=== PATIENT | male | born 1960 | race Caucasian/White ===

== ENCOUNTER 2017-09-13 09:30 | Emergency (ER) | payer SELFPAY ==
--- NOTE | 2017-09-13 09:30 | DT_ITS ---
This patient was seen during an EMR downtime September 09, 2017 - September 16, 2017. This patient may have a combination of paper and electronic documentation or all paper documentation. All documentation is viewable within the e-chart portion of [employer] for each patient visit.
--- NOTE | 2017-09-13 09:43 | CT_ITS ---
STUDY: CT ABDOMEN AND PELVIS WITHOUT CONTRAST REASON FOR EXAM: Male, 56 years old. Length RADIATION DOSAGE (If Supplied By Facility): CTDIvol = ( 19.54 ) mGy, DLP = ( 1064.47 ) mGycm TECHNIQUE: Transaxial images were obtained from the dome of the diaphragm to the symphysis pubis without oral contrast, and without intravenous contrast. Sagittal and coronal images were reconstructed. Individualized dose optimization techniques were used for this CT. COMPARISON: None. FINDINGS: The visualized lung bases are unremarkable. The visualized portions of the heart are within normal limits. Normal liver. Normal gallbladder and extrahepatic biliary system. Normal spleen. Normal pancreas. Normal bilateral adrenal glands. There is a 3 mm stone at the RIGHT ureterovesical junction causing moderate RIGHT hydronephrosis and hydroureter. There are tiny stones in both kidneys. There is NO LEFT hydronephrosis. Normal visualized stomach. Normal small intestine. Normal colon. The appendix is not identified. Normal abdominal aorta. Normal inferior vena cava. Normal retroperitoneum. Normal urinary bladder. There is NO ascites, free air, abscess or adenopathy. Normal abdominal wall. There is loss of disc height at L5-S1. There is grade 1 anterior spondylolisthesis with bilateral spondylolysis. CT/Abdomen/Pelvis without Cont IMPRESSION: There is a 3 mm stone at the RIGHT ureterovesical junction causing moderate RIGHT hydronephrosis and hydroureter. There are tiny stones in both kidneys. There is NO LEFT hydronephrosis. Normal visualized stomach. Normal small intestine. Normal colon. The appendix is not identified. There is NO ascites, free air, abscess or adenopathy. There is loss of disc height at L5-S1. There is grade 1 anterior spondylolisthesis with bilateral spondylolysis. Electronically Signed: Erasmo Salinas MD at 6:13 EDT , Service support ,
[2017-09-16 09:12] LABS: Bacteria 0 SEEN /hpf (None Seen); Mucous, Urine 0 SEEN /hpf (<or=2+); White Blood Cells 0 SEEN /hpf (0-5)
[2017-09-16 09:19] LABS: Color, Urine Yellow (Yellow); Glucose, Dipstick NEGATIVE (Normal); Ketone-Dipstick Negative (Negative); Specific Gravity, Urine 1.015 (1.002-1.030); Urine Bilirubin Dipstick Negative (Negative); Urine Clarity Sl Cldy (Clear)
[2017-09-16 09:20] LABS: Leukocyte Esterase-Dipstick Negative /ul (Negative); Nitrite-Dipstick Negative (Negative); Occult Blood-Urine 25 /ul (Negative); Protein-Dipstick 30 mg/dl (Negative); Red Blood Cells-Urine 0-5 SEEN /hpf (0-5); Squamous Epithelial Cells - UA 0-5 SEEN /hpf (0-5); Urine Urobilinogen Normal (Normal)
== END 2017-09-13 12:40 | disposition home or self-care (01) ==
LOC: ED 13:06
PROVIDERS: Emergency Provider Emergency Medicine
DX: N20.1 Calculus of ureter (principal)
CPT/HCPCS: 74176; 81001; 96374; 96375; 96376; 99283; A4216; J2405

== ENCOUNTER 2018-05-15 13:00 | Outpatient (RCR) | payer SELFPAY ==
--- NOTE | 2018-10-20 08:25 | HP.PT.NRP ---
HP - Discharge Summary (1) - Patient Information CRISTIANE JOHNS was seen in my office for initial evaluation on . The following Plan of Care was established for this patient: This patient was last seen in our office . 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 At this point I will be discontinuing this patient from physical therapy. I would be happy to see this patient again in the future if found appropriate by the physician. Thank you! Areli Kimble, SHWETAT
== END 2018-05-15 19:00 | disposition home or self-care (01) ==
LOC: PT 13:00
DX: R69 Illness, unspecified (principal)

== ENCOUNTER → 2019-05-26 11:56 | Outpatient (CLI) | payer SELFPAY ==
[2015-09-03 11:10] VITALS: BMI 29.3
--- NOTE | 2019-05-26 12:01 | RAD_ITS ---
STUDY: X-RAY - LUMBAR SPINE REASON FOR EXAM: Male, 58 years old. low back pain TECHNIQUE: 2 view(s) of the lumbar spine were obtained. COMPARISON: 13 September 2017 FINDINGS: There is bilateral L5 lysis with grade 1 anterolisthesis of L5 on S1, approximately 6 mm, stable since 2018 CT. Vertebral bodies are intact without destructive lesions, lytic or blastic lesions. Mineralization is normal. SI joints are intact. There is no intestinal obstruction. There are bilateral small renal calculi. There is severe elevation of BMI. RAD/Lumbar Spine 2 or 3 Views IMPRESSION: 1. L5 lysis, grade 1 anterolisthesis, stable since 2018. Electronically Signed: Paul Cueva, at 18:17 EST Tel , Service support ,
== END ==
PROVIDERS: Referring Provider Chiropractor Orthopedic; Visit Provider Chiropractor Orthopedic
DX: M54.5 Low back pain (principal)
CPT/HCPCS: 72100

== ENCOUNTER 2020-08-20 08:20 | Emergency (ER) | payer SELFPAY ==
[2020-08-20 08:20] VITALS: BP 146/99; PULSE 72; RESP 16; TEMP 36.1; O2SAT 97; BMI 33.5
--- NOTE | 2020-08-20 08:26 | CT_ITS ---
EXAM: CT ABDOMEN AND PELVIS WITHOUT INTRAVENOUS CONTRAST : 1960 CLINICAL INDICATION: Kidney Stone TECHNIQUE: Helically acquired images were obtained of the abdomen and pelvis without intravenous contrast. This CT exam was performed using one or more of the following dose reduction techniques: automated exposure control, adjustment of the mA and/or kV according to patient size, and/or use of iterative reconstruction technique. This report was created using [employer] report generation technology. COMPARISON: 09/13/2017 FINDINGS: LOWER THORAX: Unremarkable. Lung bases are clear. No cardiomegaly. No significant pericardial effusion. ABDOMEN: LIVER: Unremarkable. Homogeneous. GALLBLADDER AND BILE DUCTS: Unremarkable. No calcified gallstones. No gallbladder distention or wall edema. No intra- or extrahepatic biliary ductal dilation. PANCREAS: Unremarkable. No focal cystic mass. SPLEEN: Unremarkable. Normal size without focal cystic or solid mass. ADRENALS: Unremarkable. No nodules. KIDNEYS AND URETERS: There is left-sided hydronephrosis and hydroureter. There are nonobstructing calyceal stones bilaterally. Normal renal size and position. STOMACH AND BOWEL: Unremarkable. No stomach or bowel distention. No focal inflammatory change. PELVIS: APPENDIX: No evidence of acute appendicitis. BLADDER: There is a 4 mm stone within the bladder at the level of the left ureteral orifice. REPRODUCTIVE: Unremarkable as visualized. No mass. ABDOMEN and PELVIS: INTRAPERITONEAL SPACE: Unremarkable. No ascites or other fluid collection. No free air. BONES/JOINTS: Unremarkable. No suspicious lytic or blastic abnormality. SOFT TISSUES: Unremarkable. No discrete abdominal or pelvic wall hernia. VASCULATURE: Unremarkable. Abdominal aorta is non-dilated. LYMPH NODES: Unremarkable. No enlarged lymph nodes. CT/Abdomen/Pelvis without Cont IMPRESSION: Obstruction of the left collecting system due to a 4 mm stone within the bladder at the level of the left ureteral orifice. There is left-sided hydronephrosis and hydroureter. There are nonobstructing calyceal stones bilaterally. Individualized dose optimization techniques were used for this CT. at 0937 Reported and signed by: Bert Stone MD Electronically Signed: Bert Stone MD at 9:36 EDT Tel , Service support ,
--- NOTE | 2020-08-20 08:26 | EX.ED.DYSGE1 ---
HPI History of Present Illness Chief Complaint: Flank Pain Informant: patient Onset/Context/Timing Onset: Today Context: Sudden Onset Timing: Continuous Current Severity: Moderate Narrative Narrative: The patient is a 59-year-old male with no significant medical history the presents to the emergency department with left flank pain. He states it started this morning. He describes it as a sharp, stabbing pain. He is been nauseated without vomiting. He states he feels like pain is moving more towards his lower abdomen. He does have history of kidney stone, but has not had one in some time. He has no history of lithotripsy or stenting. He denies dysuria. He denies any fevers or chills. Prior similar symptoms: Yes Recent Illness/Hospitalization: No PFSH PFSH no medical history Home Medications hydrocodone-acetaminophen 1 tab PO Q6H PRN PRN 3 Days #10 tablet 08/20/20 [Rx Last Taken Unknown] ondansetron 4 mg PO Q8H PRN PRN #10 tab 08/20/20 [Rx Last Taken Unknown] tamsulosin 0.4 mg PO DAILY #7 capsule 08/20/20 [Rx Last Taken Unknown] Allergy/AdvReac Type Severity Reaction Status Date / Time No Known Allergies Allergy Verified 09/03/15 11:10 no significant family history Surgical History History of appendectomy Social History Smoking Status: Former smoker ROS ROS ED Constitutional Constitutional ED: Denies chills or fever(s) Eyes Eyes: Denies blurry vision or change in vision ENT ENT ED: Denies ear pain or sore throat Cardiovascular Cardiovascular: Denies chest pain or palpitations Respiratory/Chest Respiratory/Chest: Denies cough, dyspnea or dyspnea on exertion Gastrointestinal Gastrointestinal: Reports abdominal pain and nausea; Denies vomiting Genitourinary Genitourinary ED: Denies dysuria or urinary frequency Musculoskeletal Musculoskeletal: Reports back pain; Denies arthralgias or myalgias Integumentary Denies rash Neurologic Neurologic: Denies headache(s) or paresthesias Psychiatric Psychiatric: Denies anxiety or depression Endocrine Endocrinology: Denies polydipsia or polyuria Allergic/Immunologic Allergic/Immunologic ED: Denies urticaria EXAM Physical Exam Const Vital Signs: 08/20/20 08:20 08/20/20 10:23 Temperature 97.0 F L Temperature Source Temporal Pulse Rate 72 86 Respiratory Rate 16 16 Blood Pressure 146/99 H 142/92 H Blood Pressure Mean 114 108 Pulse Ox 97 96 Oxygen Delivery Method Room Air Room Air Positive well nourished and well developed General Appearance ED: well developed HEENT Reports normocephalic, head/scalp atraumatic and moist mucous membranes Eyes PERRL and EOMs intact bilaterally Neck no lymphadenopathy and supple General: Negative for tenderness Chest Wall inspection of chest normal Resp normal respiratory effort and clear to auscultation bilaterally Cardio regular rate, regular rhythm and no murmurs GI normal to inspection, nondistended, normoactive bowel sounds Palpation: Negative for tender, guarding or rebound tenderness present Back/Spine General Back: CVA tenderness Cervical Spine: Negative for cervical spine tenderness Thoracic Spine / Upper Back: Negative for thoracic spinal tenderness Extremity normal to inspection General Extremety ED: Negative for tenderness Neuro oriented x3 and CN's II-XII intact bilaterally Neuro Narrative: No focal deficits appreciated. Sensorium / Orientation: alert Psych mental status grossly normal Skin no rashes or lesions noted, no wounds and skin turgor normal MDM MDM MDM Narrative Medical decision making narrative: Patient presents with acute left-sided flank pain. He does have history of kidney stones. He is never required lithotripsy or stenting. IV was established. She was treated with analgesics and antiemetics and is feeling improved. CT does demonstrate a 4 mm stone right at the junction of the bladder. Patient is still resting comfortably. His labs are otherwise unremarkable. At this point, I do feel it is safe for outpatient follow-up with urology. I will prescribe analgesics and antiemetics. He was counseled on concerning symptoms and reasons to return. He will be discharged home. Impression 1. 4 mm left-sided urolithiasis Lab Data Attestation: I reviewed the patient's lab results. Labs: Laboratory Results - last 24 hr 08/20/20 08/20/20 08:45 08:45 WBC 7.4 RBC 4.94 Hgb 15.2 Hct 44.7 MCV 90.5 MCH 30.8 MCHC 34.0 RDW Std Deviation 39.7 RDW Coeff of Nidia 12.1 Plt Count 311 MPV 9.5 Immature Gran % (Auto) 0.300 Neut % (Auto) 49.8 Lymph % (Auto) 38.3 Brown % (Auto) 8.9 Eos % (Auto) 2.3 Baso % (Auto) 0.4 Absolute Neuts (auto) 3.7 Absolute Lymphs (auto) 2.84 Nucleated RBC % 0 Sodium 142 Potassium 4.7 Chloride 110 H Carbon Dioxide 30.0 Anion Gap 2 L BUN 12 Creatinine 1.12 Estim Creat Clear Calc 75.64 Est GFR (MDRD) Af Amer 86 Est GFR (MDRD) Non-Af 71 BUN/Creatinine Ratio 10.7 Glucose 123 H Calcium 9.0 Radiography Diagnostic Testing: Radiology Impression Abdomen/Pelvis CT 08/20/20 08:26 IMPRESSION: Obstruction of the left collecting system due to a 4 mm stone within the bladder at the level of the left ureteral orifice. There is left-sided hydronephrosis and hydroureter. There are nonobstructing calyceal stones bilaterally. Individualized dose optimization techniques were used for this CT. at 0937 Reported and signed by: Bert Stone MD Electronically Signed: Bert Stone MD at 9:36 EDT Tel , Service support , Discharge Plan Triage Chief Complaint: Flank Pain ED Provider: Esteban Chávez Dx/Rx/DC Orders Instructions: ED Kidney Stone w/ Colic Prescriptions: New hydrocodone-acetaminophen [hydrocodone-acetaminophen] 1 TABLET tablet 1 tab PO Q6H PRN PRN (Reason: Pain) 3 Days Qty: 10 RF: 0 tamsulosin [tamsulosin] 0.4 MG capsule 0.4 mg PO DAILY Qty: 7 RF: 0 ondansetron [ondansetron] 4 MG tablet 4 mg PO Q8H PRN PRN (Reason: Nausea) Qty: 10 RF: 0 Primary Care Provider: Care Physician,No Primary Referrals: Matt Montez MD [STAFF PHYSICIAN] - 3-5 Days Care Physician,No Primary [Primary Care Provider] -
[2020-08-20] MEDS: 0.9% Normal Saline 1,000 ML 250 ML IV (08:35)
[2020-08-20] MEDS: Ondansetron 4 MG/2 ML Vial IV (08:39)
[2020-08-20] MEDS: Ketorolac 30 MG/ML Syringe IV (08:39)
[2020-08-20] MEDS: Morphine 4 MG/ML Syringe IV ×2 (08:39→10:14)
[2020-08-20 08:57] LABS: Absolute Lymphocyte Count 2.84 X10^3/uL (0.83-4.51); Absolute Neutrophil Count 3.7 X10^3/uL (2.0-7.7); Basophil# 0.03 X10^3/uL; Basophil% 0.4 % (0-1); Eosinophil# 0.17 X10^3/uL; Eosinophils% 2.3 % (0-5); Hematocrit 44.7 % (40-54); Hemoglobin 15.2 g/dL (13.0-16.5); Lymphocyte # 2.84 X10^3/ul (0.83-4.51); Lymphocyte % 38.3 % (19-41); Mean Corpuscular Hgb 30.8 pg (27.0-32.0); Mean Corpuscular Volume 90.5 fL (80-94); Mean Platelet Vol. 9.5 fl (6.2-12.0); Monocyte# 0.66 X10^3/uL; Monocyte% 8.9 % (0-10); NRBC Flagged by Analyzer 0 % (0-5); Neutrophil % 49.8 % (47-70); Platelet Count 311 K/mm3 (150-450); RBC Distribution Width CV 12.1 % (11.6-14.6); RBC Distribution Width SD 39.7 fl (35.1-43.9); Red Blood Count 4.94 M/mm3 (4.6-6.2); White Blood Count 7.4 K/mm3 (4.4-11.0)
[2020-08-20 09:05] LABS: Anion Gap 2 (5-15); BUN 12 mg/dL (7-18); BUN/Creat Ratio 10.7 RATIO (10-20); Chloride 110 mmol/L (98-107); Creatinine, Serum 1.12 mg/dL (0.70-1.30); EST Glomerular Filtration Rate 71 mL/min (>60); Est Glom Filt Rate - Afr Amer 86 mL/min (>60); Estimated Creatinine Clearance 75.64 ml/min; Glucose 123 mg/dL (74-106); Potassium 4.7 mmol/L (3.5-5.1); Sodium Level 142 mmol/L (136-145)
[2020-08-20 10:23] VITALS: BP 142/92; PULSE 86; RESP 16; O2SAT 96
[2020-08-20 10:26] LABS: Mucous, Urine 0 SEEN /hpf (<or=2+); White Blood Cells 0 SEEN /hpf (0-5)
[2020-08-20 10:35] LABS: Color, Urine Yellow (Yellow); Glucose, Dipstick Normal (Normal); Ketone-Dipstick Negative (Negative); Leukocyte Esterase-Dipstick 25 /ul (Negative); Nitrite-Dipstick Negative (Negative); Occult Blood-Urine 150 /ul (Negative); Protein-Dipstick Negative (Negative); Urine Bilirubin Dipstick Negative (Negative); Urine Clarity Sl. Cloudy (Clear); Urine Urobilinogen Normal (Normal)
[2020-08-20 10:41] LABS: Red Blood Cells-Urine 5-10 SEEN /hpf (0-5); Squamous Epithelial Cells - UA 0-5 SEEN /hpf (0-5)
[2020-08-20 10:42] VITALS: BP 140/95; PULSE 66; RESP 17; O2SAT 97
[2020-08-20 10:42] LABS: Amorphous Sediment 1+; Bacteria 1+ /hpf (None Seen)
== END 2020-08-20 10:43 | disposition home or self-care (01) ==
LOC: ED 09:24
PROVIDERS: Emergency Provider Emergency Medicine
DX: N21.0 Calculus in bladder (principal); Z87.442 Personal history of urinary calculi; Z87.891 Personal history of nicotine dependence
CPT/HCPCS: 74176; 80048; 81001; 85025; 96361; 96374; 96375; 96376; 99283; J7030; A4216; J2405

== ENCOUNTER 2022-02-14 12:01 | Observation (INO) | payer SELFPAY ==
[2022-02-14] VITALS (7 sets, daily range): BP systolic 127–165; BP diastolic 79–106; PULSE 73–103; RESP 16–21; TEMP 36.3–36.7; O2SAT 94–97; BMI 36.4; BMI 34.5
--- NOTE | 2022-02-14 12:21 | EX.ED.DYSGE1 ---
HPI History of Present Illness Chief Complaint: Syncope Informant: patient, spouse/S.O. and family Narrative Narrative: 61-year-old male presenting to the emergency room with syncope. Patient states that he was in his normal state of health this morning. He is retired and was looking underneath the truck. He states he was on his arms and his knees and the next thing he remembers was waking up on the ground. He attempted to stand up and passed out again. He remembers being diaphoretic. He denies any prodrome. He denies any chest pain or palpitations. He denies any previous occurrence of this. Currently he just feels weak. He notes that he had sweat dripping down his back but did not experience any new pain. The patient is noted to appear pale to his . PFSH PFSH Home Medications Lactobacillus acidophilus 1 billion cell tablet 1,000 mmu cells PO DAILY GUT HEALTH 02/14/22 [History Last Taken 02/14/22] ibuprofen 125 mg-acetaminophen 250 mg tablet (Advil Dual Action) 2 tab PO DAILY PRN Pain 02/14/22 [History Last Taken Unknown] multivitamin 1 tab PO DAILY SUPPLEMENT 02/14/22 [History Last Taken 02/14/22] Allergy/AdvReac Type Severity Reaction Status Date / Time No Known Allergies Allergy Verified 09/03/15 11:10 Surgical History History of appendectomy Social History (Updated 02/14/22 @ 12:[address] Silvestre Akhtar DO) household members: spouse Smoking Status: Former smoker ROS ROS ED Constitutional Constitutional ED: Denies chills or weight loss Eyes Eyes: Denies change in vision or diplopia ENT ENT ED: Denies ear pain, rhinorrhea or sore throat Cardiovascular Cardiovascular: Reports other Details: syncope ; Denies chest pain, orthopnea, palpitations or racing heartbeat Respiratory/Chest Respiratory/Chest: Denies cough, dyspnea or orthopnea Gastrointestinal Gastrointestinal: Denies abdominal pain, diarrhea, nausea or vomiting Genitourinary Genitourinary ED: Denies dysuria, hematuria or urinary frequency Musculoskeletal Musculoskeletal: Denies arthralgias or myalgias Integumentary Denies abscess or rash Neurologic Neurologic: Denies headache(s) or weakness Psychiatric Psychiatric: Denies anxiety, depression, suicidal ideation or suicidal thoughts Endocrine Endocrinology: Denies polydipsia, polyphagia or polyuria Allergic/Immunologic Allergic/Immunologic ED: Denies mouth swelling, tongue swelling or urticaria EXAM Physical Exam Const Vital Signs: 02/14/22 12:03 02/14/22 15:06 02/14/22 15:21 Temperature 97.4 F L Temperature Source Temporal Pulse Rate 82 99 Pulse Rate [Lying] 85 Pulse Rate [Sitting (for 1 minute prior to obtaining)] 91 Pulse Rate [Standing (for 1 minute prior to obtaining)] 103 H Respiratory Rate 16 21 H Blood Pressure 146/94 H 165/106 H Blood Pressure [Lying] 147/84 H Blood Pressure [Sitting (for 1 minute prior to obtaining)] 165/106 H Blood Pressure Mean 111 125 Blood Pressure Mean [Lying] 105 Blood Pressure Mean [Sitting (for 1 minute prior to obtaining)] 125 Pulse Ox 94 97 Oxygen Delivery Method Room Air Room Air Positive well nourished and well developed General Appearance ED: well developed HEENT Reports normocephalic, head/scalp atraumatic and moist mucous membranes Eyes PERRL and EOMs intact bilaterally Neck no lymphadenopathy, supple and no JVD Resp normal respiratory effort and clear to auscultation bilaterally Cardio regular rate, regular rhythm and no murmurs GI normal to inspection, nondistended, normoactive bowel sounds and non-tender Palpation: soft Back/Spine no CVA tenderness and normal ROM Extremity normal to inspection General Extremety ED: Negative for edema General Extremity: Negative for edema Neuro oriented x3 and CN's II-XII intact bilaterally Sensorium / Orientation: alert Motor Exam: strength 5/5 throughout Psych mental status grossly normal Mood & Affect: Negative for depressed or tearful Skin no rashes or lesions noted and no wounds MDM MDM MDM Narrative Medical decision making narrative: Basic blood work was obtained showed a white count 11.7 hemoglobin 15.8. EKG shows a normal sinus rhythm. My interpretation of the chest x-ray is no acute process. CT of the brain is negative the patient attempted to ambulate to the bathroom but was extremely lightheaded. Orthostatics are not positive. I spoke with our hospitalist who is evaluated the patient. Dr. Cr found a positive Renato-Hallpike. And the patient now relays data that could be consistent with vertigo. He is still symptomatic and plan is admission Lab Data Attestation: I reviewed the patient's lab results. Labs: Laboratory Results - last 24 hr 02/14/22 02/14/22 11:43 11:43 WBC 11.7 H RBC 5.13 Hgb 15.8 Hct 46.2 MCV 90.1 MCH 30.8 MCHC 34.2 RDW Std Deviation 39.0 RDW Coeff of Nidia 11.9 Plt Count 237 MPV 10.6 Immature Gran % (Auto) 0.300 Neut % (Auto) 51.6 Lymph % (Auto) 38.3 Thayer % (Auto) 7.9 Eos % (Auto) 1.5 Baso % (Auto) 0.4 Absolute Neuts (auto) 6.0 Absolute Lymphs (auto) 4.48 Nucleated RBC % 0 Sodium 141 Potassium 4.2 Chloride 106 Carbon Dioxide 31.0 Anion Gap 4 L BUN 14 Creatinine 1.10 Estim Creat Clear Calc 75.11 Est GFR (MDRD) Af Amer 87 Est GFR (MDRD) Non-Af 72 BUN/Creatinine Ratio 12.7 Glucose 120 H Calcium 9.3 Total Bilirubin 0.40 AST 28 ALT 46 Alkaline Phosphatase 99 Troponin I High Sens 4 Total Protein 8.0 Albumin 4.0 Globulin 4.0 Albumin/Globulin Ratio 1.0 Radiography Diagnostic Testing: Clinical Impression(s) from Imaging Studies Chest X-Ray 02/14/22 12:45 IMPRESSION: Increased markings at the left lung base suggestive of atelectasis and/or early infiltrate. There is blunting of the right costophrenic angle. Electronically Signed: Leno Mosley MD at 13:05 EST , Brain CT 02/14/22 14:34 IMPRESSION: Normal unenhanced CT scan of the brain. Electronically Signed: Leno Mosley MD at 15:04 EST , EKG Initial EKG: Attestation: I personally reviewed and interpreted this EKG as follows: Comments: Sinus rhythm with a first-degree AV block at a ventricular rate of 71 bpm Discharge Plan Triage Chief Complaint: Syncope ED Provider: Silvestre Akhtar Dx/Rx/DC Orders Prescriptions: No Action multivitamin [One A Day] Tablet 1 tab PO DAILY Lactobacillus acidophilus 1 billion cell Tablet 1,000 mmu cells PO DAILY Advil Dual Action 125-250 mg Tablet 2 tab PO DAILY PRN (Reason: Pain) Primary Care Provider: Care Physician,No Primary Referrals: Care Physician,No Primary [Primary Care Provider] -
--- NOTE | 2022-02-14 12:35 | EKG12_ITS ---
Test Reason : SYNCOPE Blood Pressure : / mmHG Vent. Rate : 071 BPM Atrial Rate : 071 BPM P-R Int : 226 ms QRS Dur : 084 ms QT Int : 364 ms P-R-T Axes : 036 -10 041 degrees QTc Int : 395 ms Sinus rhythm with 1st degree A-V block Otherwise normal ECG Confirmed by UMAIR RICE, MAIRA ([id number]), sound editor DEREK PETER ([id number]) on 02/20/2022 9:28:32 A M Referred By: Confirmed By:HUMBERTO BLOCK MD
[2022-02-14 12:45] LABS: Absolute Lymphocyte Count 4.48 X10^3/uL (0.83-4.51); Basophil# 0.05 X10^3/uL; Basophil% 0.4 % (0-1); Eosinophil# 0.18 X10^3/uL; Eosinophils% 1.5 % (0-5); Hematocrit 46.2 % (40-54); Hemoglobin 15.8 g/dL (13.0-16.5); Lymphocyte # 4.48 X10^3/ul (0.83-4.51); Lymphocyte % 38.3 % (19-41); Mean Corp Hgb Conc 34.2 g/dL (32-36); Mean Corpuscular Hgb 30.8 pg (27.0-32.0); Mean Corpuscular Volume 90.1 fL (80-94); Mean Platelet Vol. 10.6 fl (6.2-12.0); Monocyte# 0.92 X10^3/uL; Monocyte% 7.9 % (0-10); NRBC Flagged by Analyzer 0 % (0-5); Neutrophil # 6.03 X10^3/uL (2.7-7.7); Neutrophil % 51.6 % (47-70); Platelet Count 237 K/mm3 (150-450); RBC Distribution Width CV 11.9 % (11.6-14.6); Red Blood Count 5.13 M/mm3 (4.6-6.2); White Blood Count 11.7 K/mm3 (4.4-11.0)
--- NOTE | 2022-02-14 12:45 | RAD_ITS ---
STUDY: X-RAY CHEST REASON FOR EXAM: Male, 61 years old. Syncope TECHNIQUE: Single AP portable view of the chest. COMPARISON: Comparison is made with prior study dated 09/03/2015. FINDINGS: EKG electrodes are seen. Mild increased markings at the left lung base suggestive of atelectasis and/or early infiltrate. There is blunting of the right costophrenic angle. Normal size heart. Normal mediastinum and dixie. Normal visualized pulmonary arteries. There is atherosclerotic tortuosity of the aortic arch and descending thoracic aorta. Normal visualized thoracic spine. Normal visualized ribs, clavicles, and shoulders. There is no demonstrated abnormality of the visualized soft tissue structures of the upper abdomen. RAD/Chest 1 View (Portable) IMPRESSION: Increased markings at the left lung base suggestive of atelectasis and/or early infiltrate. There is blunting of the right costophrenic angle. Electronically Signed: Leno Mosley MD at 13:05 EST ,
[2022-02-14 13:03] LABS: AST(SGOT) 28 U/L (15-37); Alanine Aminotransfer ALT/SGPT 46 U/L (16-61); Alkaline Phosphatase 99 U/L (45-117); Anion Gap 4 (5-15); BUN 14 mg/dL (7-18); BUN/Creat Ratio 12.7 RATIO (10-20); Calcium,Total 9.3 mg/dL (8.5-10.1); Chloride 106 mmol/L (98-107); EST Glomerular Filtration Rate 72 mL/min (>60); Est Glom Filt Rate - Afr Amer 87 mL/min (>60); Estimated Creatinine Clearance 75.11 ml/min; Glucose 120 mg/dL (74-106); Potassium 4.2 mmol/L (3.5-5.1); Sodium Level 141 mmol/L (136-145); Troponin-I HS 4 pg/mL (3.0-78.0)
--- NOTE | 2022-02-14 13:22 | CM.ED ---
Social Work Consult: No Primary Care Physician/self pay Referral source: Self referral due to above. This clinical social worker met with patient in room. Introduced self and clinical social worker role. Patient agreeable to speak with this clinical social worker and provided verbal permission for this clinical social worker to speak openly with patient significant other and other family member present. This clinical social worker broached topic of primary care physician and self pay status. Patient confirms to be retired and to be working on obtaining social security disability and to have a distribution a class lineman assisting patient with this. Patient confirms to not have a primary care physician and to understand the importance of having a doctor to see in the community. This clinical social worker sensitive to the fact that patient does not have a primary care doctor currently due to not having insurance figured out yet. Patient denies concerns in the community and confirms to have housing, food, transportation and needed supports. No further services requested or indicated. Rocky HART, ALBA
--- NOTE | 2022-02-14 14:34 | CT_ITS ---
STUDY: CT BRAIN WITHOUT CONTRAST REASON FOR EXAM: Male, 61 years old. Syncope RADIATION DOSAGE (If Supplied By Facility): CTDIvol = ( 44.99 ) mGy, DLP = ( 812.98 ) mGycm TECHNIQUE: Transaxial CT imaging of the brain was performed without administration of intravenous contrast material. Individualized dose optimization techniques were used for this CT. COMPARISON: Comparison is made with prior study dated 09/03/2015. FINDINGS: Normal soft tissue structures. Normal calvarium. Normal size ventricles and extra-axial spaces for the patient''s age. Normal white matter tracts of the cerebral hemispheres. Normal basal ganglia and thalami. Normal brainstem. Normal cerebellum. There is no intracranial hemorrhage. There are no findings of an acute ischemic infarction. Normal visualized paranasal sinuses. CT/Brain/Head without Contrast IMPRESSION: Normal unenhanced CT scan of the brain. Electronically Signed: Leno Mosley MD at 15:04 EST ,
--- NOTE | 2022-02-14 15:56 | NURSING ---
MED SURG OBS KOFI SYNCOPE, DIZZINESS
--- NOTE | 2022-02-14 16:01 | PCM.HP.STD ---
HPI - General General Date of Service: 02/14/22 Chief Complaint: syncope HPI Narrative CRISTIANE JOHNS, is a 61 M who presents with syncope. Patient was working underneath his truck and felt the room spinning and then passed out. Passed out couple more times. Before each time he felt the room spinning. Presented to the emergency room where he has been unsteady but its been waxing and waning. Sometimes he feels dizzy other times when he gets up he does not. Patient has never had anything like this before. Patient denies any new medications. In the emergency room, patient's work-up was unremarkable. Given his ongoing unsteadiness, the hospital service was contacted for admission. [facility] Home Medications Lactobacillus acidophilus 1 billion cell tablet 1,000 mmu cells PO DAILY GUT HEALTH 02/14/22 [History Last Taken 02/14/22] ibuprofen 125 mg-acetaminophen 250 mg tablet (Advil Dual Action) 2 tab PO DAILY PRN Pain 02/14/22 [History Last Taken Unknown] multivitamin 1 tab PO DAILY SUPPLEMENT 02/14/22 [History Last Taken 02/14/22] Allergy/AdvReac Type Severity Reaction Status Date / Time No Known Allergies Allergy Verified 09/03/15 11:10 Family History (Updated 02/14/22 @ 16:[address] Blu Cr DO) Brother CAD (coronary artery disease) Surgical History History of appendectomy Social History household members: spouse Smoking Status: Former smoker ROS ROS Narrative All review of systems were negative except as mentioned above in the history of present illness and the other review of systems. Vital Signs Vital Signs Vital Signs: 02/14/22 12:03 02/14/22 15:06 02/14/22 15:21 Temperature 36.3 C L Temperature Source Temporal Pulse Rate 82 99 Pulse Rate [Lying] 85 Pulse Rate [Sitting (for 1 minute prior to obtaining)] 91 Pulse Rate [Standing (for 1 minute prior to obtaining)] 103 H Respiratory Rate 16 21 H Blood Pressure 146/94 H 165/106 H Blood Pressure [Lying] 147/84 H Blood Pressure [Sitting (for 1 minute prior to obtaining)] 165/106 H Blood Pressure Mean 111 125 Blood Pressure Mean [Lying] 105 Blood Pressure Mean [Sitting (for 1 minute prior to obtaining)] 125 Pulse Ox 94 97 Oxygen Delivery Method Room Air Room Air Weight Weight: 118.6 kg Body Mass Index (BMI) 36.4 Physical Exam Const alert and no apparent distress HEENT normocephalic and head/scalp atraumatic Eyes PERRL and EOMs intact bilaterally Neck no lymphadenopathy and no carotid bruits Resp normal respiratory effort, no retractions, no use of accessory muscles and clear to auscultation bilaterally Cardio regular rate, regular rhythm, S1 normal heart sound and S2 normal heart sound GI normal to inspection, nondistended, normoactive bowel sounds, soft to palpation, non-tender and non-distended Extremity normal to inspection and no clubbing, cyanosis or edema Neuro oriented x3, CN's II-XII intact bilaterally, moves all extremities and no focal motor deficits Neuro Narrative: [place]-Hallpike maneuver positive on the right where the patient suddenly felt dizzy and nauseated. Symptoms resolved after a few minutes. Patient did not lose consciousness. Sensorium / Orientation: awake and alert Coordination / Balance: [id number] test normal and [id number] test normal Motor Exam: strength 5/5 throughout Psych affect normal Results Lab / Micro Data Attestation: I reviewed the patient's lab results. Result Diagrams: 02/14/22 11:43 02/14/22 11:43 Labs: Laboratory Results - last 24 hr 02/14/22 11:43: WBC 11.7 H, RBC 5.13, Hgb 15.8, Hct 46.2, MCV 90.1, MCH 30.8, MCHC 34.2, RDW Std Deviation 39.0, RDW Coeff of Nidia 11.9, Plt Count 237, MPV 10.6, Immature Gran % (Auto) 0.300, Neut % (Auto) 51.6, Lymph % (Auto) 38.3, [place] % (Auto) 7.9, Eos % (Auto) 1.5, Baso % (Auto) 0.4, Absolute Neuts (auto) 6.0, Absolute Lymphs (auto) 4.48, Nucleated RBC % 0 02/14/22 11:43: Sodium 141, Potassium 4.2, Chloride 106, Carbon Dioxide 31.0, Anion Gap 4 L, BUN 14, Creatinine 1.10, Estim Creat Clear Calc 75.11, Est GFR (MDRD) Af Amer 87, Est GFR (MDRD) Non-Af 72, BUN/Creatinine Ratio 12.7, Glucose 120 H, Calcium 9.3, Total Bilirubin 0.40, AST 28, ALT 46, Alkaline Phosphatase 99, Troponin I High Sens 4, Total Protein 8.0, Albumin 4.0, Globulin 4.0, Albumin/Globulin Ratio 1.0 Radiology Impression Chest X-Ray 02/14/22 12:45 IMPRESSION: Increased markings at the left lung base suggestive of atelectasis and/or early infiltrate. There is blunting of the right costophrenic angle. Electronically Signed: Leno Mosley MD at 13:05 EST , Brain CT 02/14/22 14:34 IMPRESSION: Normal unenhanced CT scan of the brain. Electronically Signed: Leno Mosley MD at 15:04 EST , Assessment & Plan Assessment/Plan (1) Vertigo: PLAN: Exam is consistent with benign paroxysmal positional vertigo on the right side with a positive [place]-Hallpike maneuver. Add as needed meclizine Physical therapy for vestibular rehab. Head CT was negative for any acute process. I do not feel any additional imaging is necessary at this time. Patient states that when he was under his truck he turned his head to the right which is what led to his cascade of symptoms (2) Syncope: PLAN: Vasovagal secondary to the vertigo No additional work-up at this time. PLAN: Plan Patient to be admitted under observation status. If his symptoms resolve then he could go home without any further intervention. Patient still too unsteady to go home at this time. Charges/Coding Visit Charges OBSV E&M: 48373 Initial observation care L3
[2022-02-14] MEDS: Ibuprofen 600 MG Tablet PO (20:39)
[2022-02-15 03:15] VITALS: BP 131/71; PULSE 73; RESP 18; TEMP 36.5; O2SAT 95
[2022-02-15 08:27] VITALS: BP 135/71; PULSE 70; RESP 18; TEMP 36.6; O2SAT 98
[2022-02-15] MEDS: Acetaminophen 325 MG Tablet 650 MG PO (08:34)
[2022-02-15] MEDS: Meclizine HCl 25 MG Tablet PO (08:34)
[2022-02-15] MEDS: diazePAM 2 MG Tablet PO ×2 (11:13→13:53)
--- NOTE | 2022-02-15 12:03 | CASEMGMT ---
Therapy recommending vestibular therapy at d/c and pt is agreeable. Script obtained for [employer] and faxed at this time. Pt provided original. Pt voices no further questions/concerns/needs. CM to follow for any further discharge planning/needs. Brynn BURNS CM
[2022-02-15] MEDS: Ibuprofen 600 MG Tablet PO (14:02)
[2022-02-15 14:25] VITALS: BP 137/87; PULSE 74; RESP 18; TEMP 36.4; O2SAT 95
--- NOTE | 2022-02-15 15:54 | DCINST_ITS ---
Discharge Instructions Diet Discharge Diet: No restrictions Activity Discharge Activity: Return to Normal Activity Weight Bearing Status: Full weight bearing Follow Up Care Test Results: Test results from this visit will be discussed in further detail at your follow- up appointment, if applicable. Discharge Plan Admission Admit Date/Time: 02/14/22 15:58 Primary Reason for Your Visit: vertigo Attending Provider: Wellington Garcia Primary Care Provider: Care Physician,No Primary Consulting Providers: Blu Cr Instructions Additional Instructions / Restrictions: You may take the Valium as needed or you may take it 3 times a day for the next 3 to 4 days until gone, watch for drowsiness with the medication Discharge Orders/Prescriptions Prescriptions: New diazepam 2 mg Tablet 2 mg PO TID Qty: 12 0RF Continued multivitamin Tablet 1 tab PO DAILY Lactobacillus acidophilus 1 billion cell Tablet 1,000 mmu cells PO DAILY Advil Dual Action 125-250 mg Tablet 2 tab PO DAILY PRN (Reason: Pain) Referrals / Follow Up: Care Physician,No Primary [Primary Care Provider] - Disposition Disposition (needs filled in before D/C Order can be placed): Home, Self Care
--- NOTE | 2022-02-15 16:00 | DS.PCM_ITS ---
Providers Date of Admission: 02/14/22 Date of Discharge: 02/15/22 Primary Care Physician: No Primary Care Phys Reason For Visit: VERTIGO Diagnosis Discharge Diagnosis (1) Vertigo: Status: Acute Code(s): R42 - Dizziness and giddiness (2) Syncope: Status: Acute Code(s): R55 - Syncope and collapse Plan 1. Benign vertigo #2 vasovagal syncope Medications at Discharge Home Medications Lactobacillus acidophilus 1 billion cell tablet 1,000 mmu cells PO DAILY GUT HEALTH 02/14/22 ibuprofen 125 mg-acetaminophen 250 mg tablet (Advil Dual Action) 2 tab PO DAILY PRN Pain 02/14/22 multivitamin 1 tab PO DAILY SUPPLEMENT 02/14/22 diazepam 2 mg tablet 2 mg PO TID #12 tabs 02/15/22 Hospital Course Operations None Procedures None Summary of Care Provided Minutes Spent on Discharge: 30 Hospital Course: 61-year-old white male was seen in the emergency room at [facility] after suffering a brief episode of syncope at home, this was preceded by a vertiginous sensation. Patient had no complaints of any focal neurological deficits, no visual disturbances or speech disturbances. Work-up in the emergency room was unremarkable, it was felt that the patient had benign vertigo, he was placed in observation status on PCU and he was given oral Valium. Patient's symptoms improved. On 02/15/2022, patient was seen and examined: On examination he appeared in good health and spirits. Vital signs as documented. Skin warm and dry and without overt rashes. Neck without JVD, neck was supple, trachea midline, thyroid was normal. Lungs clear bilaterally, normal air movement was noted. Heart exam notable for regular rhythm, normal sounds and absence of murmurs, rubs or gallops. Abdomen unremarkable and without evidence of organomegaly, masses, or abdominal aortic enlargement. Bowel sounds are present, abdomen is not distended. Extremities nonedematous, no cyanosis was noted, no clubbing was noted. Neuro: Cranial nerves II through XII are grossly intact, no focal motor deficits were noted, sensation to light touch and pinprick intact, motor exam 5/5 throughout. Psych: Patient is alert and oriented x3, he does not appear anxious or depressed, he does not appear agitated. Patient was felt to be stable for discharge on 02/15/2022. Weight / BMI Weight Weight: 112.491 kg Body Mass Index (BMI) 34.5 ABG / Lab / Microbiology Data Result Diagrams: 02/14/22 11:43 02/14/22 11:43 D/C Instructions Discharge Diet: No restrictions Weight Bearing Status: Full weight bearing Meaningful Use Info Meaningful Use Diagnoses (Choose all that apply): None applicable Discharge Plan Admission Admit Date/Time: 02/14/22 15:58 Primary Reason for Your Visit: vertigo Attending Provider: Wellington Garcia Primary Care Provider: Care Physician,No Primary Consulting Providers: Blu Cr Instructions Additional Instructions / Restrictions: You may take the Valium as needed or you may take it 3 times a day for the next 3 to 4 days until gone, watch for drowsiness with the medication Discharge Orders/Prescriptions Prescriptions: New diazepam 2 mg Tablet 2 mg PO TID Qty: 12 0RF Continued multivitamin Tablet 1 tab PO DAILY Lactobacillus acidophilus 1 billion cell Tablet 1,000 mmu cells PO DAILY Advil Dual Action 125-250 mg Tablet 2 tab PO DAILY PRN (Reason: Pain) Referrals / Follow Up: Care Physician,No Primary [Primary Care Provider] - Disposition Disposition (needs filled in before D/C Order can be placed): Home, Self Care Charges/Coding Visit Charges OBSV E&M: 75919 Observation care discharge
== END 2022-02-15 15:59 | disposition home or self-care (01) ==
LOC: ED 14:15 → PCU 16:19
PROVIDERS: Emergency Provider Emergency Medicine; Visit Provider Internal Medicine
DX: R55 Syncope and collapse (principal); R42 Dizziness and giddiness; Z87.891 Personal history of nicotine dependence
CPT/HCPCS: 70450; 71045; 80053; 84484; 85025; 93005; 97161; 97802; 99218; 99285; G0378

== ENCOUNTER 2022-04-24 13:07 | Emergency (ER) | payer MEDICAID, SELFPAY ==
[2022-04-24 13:08] VITALS: BP 142/97; PULSE 91; RESP 15; TEMP 36.6; O2SAT 98; BMI 34.9
--- NOTE | 2022-04-24 14:13 | EKG12_ITS ---
Test Reason : Blood Pressure : / mmHG Vent. Rate : 079 BPM Atrial Rate : 079 BPM P-R Int : 200 ms QRS Dur : 080 ms QT Int : 358 ms P-R-T Axes : 033 -01 047 degrees QTc Int : 410 ms Normal sinus rhythm Normal ECG Confirmed by GEETHA RICE, CIRILO ([id number]), publications editor DEREK PETER ([id number]) on 04/25/2022 2:43:50 PM Referred By: Confirmed By:CIRILO INIGUEZ MD
--- NOTE | 2022-04-24 14:14 | EX.ED.DYSGE1 ---
HPI History of Present Illness Chief Complaint: Dizziness Narrative Narrative: 61-year-old male who denies significant past medical history presents with his significant other because of dizziness and lightheadedness that he has had for over a month. He states that he had a syncopal episode about a month ago. Ever since then, every day, he gets lightheaded and dizzy. It is associated with nausea. He states he does not get full spin out, but has also noticed that he has to lay down, and that his blood pressure has been elevated in the 180s sometimes when this happens. He denies any fevers or chills currently, but states over the last few weeks, COVID and had fever and cough. He presents because he states he finally got insurance, but cannot see a primary care physician for at least 4 months. He is concerned about his blood pressure, and the dizziness/lightheadedness. It is the same as when it was when he had this reported syncopal episode. He relates history that his girlfriend cleaned out his ear, got a bunch of wax out and that he may have had a syncopal episode at that time which sounds more vasovagal. [facility] Medical History Kidney stones Home Medications Lactobacillus acidophilus 1 billion cell tablet 1,000 mmu cells PO DAILY GUT HEALTH 02/14/22 [History Last Taken 02/14/22] ibuprofen 125 mg-acetaminophen 250 mg tablet (Advil Dual Action) 2 tab PO DAILY PRN Pain 02/14/22 [History Last Taken Unknown] multivitamin 1 tab PO DAILY SUPPLEMENT 02/14/22 [History Last Taken 02/14/22] diazepam 2 mg tablet 2 mg PO TID #12 tabs 02/15/22 [Rx Last Taken Unknown] meclizine 25 mg tablet 25 mg PO TID PRN vertigo #20 tabs 04/24/22 [Rx Last Taken Unknown] metoprolol succinate 25 mg tablet,extended release 24 hr 25 mg PO DAILY #30 tabs 04/24/22 [Rx Last Taken Unknown] Allergy/AdvReac Type Severity Reaction Status Date / Time No Known Allergies Allergy Verified 04/24/22 13:08 Family History Brother CAD (coronary artery disease) Surgical History History of appendectomy Social History household members: spouse Smoking Status: Former smoker ROS ROS ED ROS Narrative Constitutional: No fever, no chills. HEENT: No sore throat. No neck pain. No loss of vision. No rhinorrhea. Cardiovascular: No chest pain. No palpitations. No pedal edema. Respiratory: No cough, no shortness of breath. Abdominal: No abdominal pain. No nausea. No vomiting. Genitourinary: No dysuria. No hematuria. Musculoskeletal: No myalgias. No arthralgias. Neurologic: No headaches. Positive dizziness. Positive lightheadedness. Skin: No rash. No change in color. Psychiatric: No depression. No anxiety. EXAM Physical Exam Narrative Exam Narrative: Afebrile. Vital signs noted. HEENT: Normocephalic. Atraumatic. PERRL, EOMI. Neck soft and supple. No point tenderness or step off. Cardiovascular: Regular rate and rhythm. No murmurs, rubs, or gallops appreciated. Respiratory: No tachypnea. Lungs clear to auscultation bilaterally. Gastrointestinal: Abdomen soft, nontender, with normoactive bowel sounds. No rebound or guarding. Neurological: Awake. Alert. Nonfocal, nonlateralizing. No nystagmus. DTRs equal and symmetric. Moves all extremities. Skin: No rash. Normal color. No pallor. Musculoskeletal: No pedal edema. Full range of motion extremities. Const Vital Signs: 04/24/22 13:08 04/24/22 15:02 Temperature 97.9 F Temperature Source Temporal Pulse Rate 91 Respiratory Rate 15 Respiratory Pattern Normal Blood Pressure 142/97 H Blood Pressure Mean 112 Pulse Ox 98 Oxygen Delivery Method Room Air MDM MDM MDM Narrative Medical decision making narrative: I reviewed the patient's prior outpatient records and dictation. He had a syncopal episode. He was a evaluated by Dr. Akhtar. He states that he was evaluated by Dr. Cr, and had a positive [place]-Hallpike. I do feel that the vertigo that he is describing may be more benign positional vertigo. In review of his medications he was given diazepam. I think he would be treated with meclizine this time for his daily dizziness. He will follow-up with the ENT. Regarding his reported elevated blood pressure, it was 142/97 here. He has a pulse of 91. He may benefit from being started on a low-dose beta-cesario such as metoprolol succinate 25 mg daily. He was told to keep a log of his blood pressures. I will obtain an EKG here today. Do not feel CT of the brain is indicated. My interpretation of his EKG demonstrates normal sinus rhythm at 79 bpm without ectopy or acute ST changes. No STEMI. I will write him a prescription for metoprolol 25 mg as stated previously and he will keep a log of his blood pressure. He was referred to ENT for his vertigo, and to another primary care physician on-call as a states he cannot be seen for the next 4 months by the one that he tried. I feel he can be discharged safely home with follow-up. Return instructions to the emergency department were reviewed. Disposition is discharged home in stable condition. Discharge Plan Triage Chief Complaint: Dizziness ED Provider: Manjeet Casanova Dx/Rx/DC Orders Clinical Impression: Vertigo, Blood pressure elevated without history of HTN Instructions: ED Hypertension New Begin Treatment, ED Vertigo, Unspecified Prescriptions: New meclizine 25 mg tablet 25 mg PO TID PRN (Reason: vertigo) Qty: 20 0RF metoprolol succinate 25 mg tablet extended release 24 hr 25 mg PO DAILY Qty: 30 0RF No Action multivitamin Tablet 1 tab PO DAILY Lactobacillus acidophilus 1 billion cell Tablet 1,000 mmu cells PO DAILY Advil Dual Action 125-250 mg Tablet 2 tab PO DAILY PRN (Reason: Pain) diazepam 2 mg Tablet 2 mg PO TID Qty: 12 0RF Primary Care Provider: Care Physician,No Primary Referrals: Ney Richardson MD [Med Staff - Promotion Manager] - As soon as possible Samson Mcneil MD [Med Staff - Active Staff] - As soon as possible Care Physician,No Primary [Primary Care Provider] - Activity Restrictions/Additional Instructions: Take metoprolol 25 mg once daily. Keep a log of your blood pressures. Do not take metoprolol if your heart rate is below 40, or your blood pressure is below 100 as the top number. Disposition Disposition: Home, Self Care
== END 2022-04-24 15:12 | disposition home or self-care (01) ==
PROVIDERS: Emergency Provider Emergency Medicine; Visit Provider Emergency Medicine
DX: R42 Dizziness and giddiness (principal); R03.0 Elevated blood-pressure reading, without diagnosis of hypertension; Z87.891 Personal history of nicotine dependence; Z82.49 Family history of ischemic heart disease and other diseases of the circulatory system
CPT/HCPCS: 93005; 99282

== ENCOUNTER → 2022-05-08 | Outpatient (CLI) | payer MEDICAID, SELFPAY ==
[2022-05-08 11:30] LABS: ALB/GLOB Ratio 0.9 RATIO (0.9-2.4); AST(SGOT) 50 U/L (15-37); Alanine Aminotransfer ALT/SGPT 47 U/L (16-61); Albumin, Serum 3.9 g/dL (3.2-5.0); Alkaline Phosphatase 85 U/L (45-117); Anion Gap 5 (5-15); BUN 14 mg/dL (7-18); BUN/Creat Ratio 14.8 RATIO (10-20); Calcium,Total 9.2 mg/dL (8.5-10.1); Chloride 106 mmol/L (98-107); Cholesterol 195 mg/dL (200); Creatinine, Serum 0.95 mg/dL (0.70-1.30); EST Glomerular Filtration Rate 86 mL/min (>60); Est Glom Filt Rate - Afr Amer 104 mL/min (>60); Globulin 4.4 g/dL (2.2-4.2); Glucose 110 mg/dL (74-106); High Density Lipoprotein 29 mg/dL; Potassium 4.5 mmol/L (3.5-5.1); Protein, Total 8.3 g/dL (6.4-8.2); Sodium Level 141 mmol/L (136-145); Triglycerides 217 mg/dL; Very Low Density Lipoprotein 43 mg/dL (5-40)
[2022-05-08 11:37] LABS: Hemoglobin A1c 5.2 % (3.8-5.6)
== END | disposition home or self-care (01) ==
LOC: LAB 10:18
DX: I10 Essential (primary) hypertension (principal)
CPT/HCPCS: 36415; 80053; 80061; 83036

== ENCOUNTER 2022-07-03 10:00 | Outpatient (RCR) | payer MEDICAID, SELFPAY ==
--- NOTE | 2022-06-14 15:45 | HP.PTEVAL ---
Patient's Visit Information CRISTIANE JOHNS is a 61 year old M referred to Physical Therapy by JENNIFER Hawkins with a diagnosis of vertigo. Date of Evaluation: 06/14/22 Physical Therapist: Blu Reid DPT, OCS, CSCS - Visit Plan Frequency: 1x/Week Duration: 4-6 Weeks Plan: weekly x 4-6 for progression of adaptation/postiional exercises as helpful, monitor positional/MSQ if needed. - Subjective Fell in yard 2 months ago. Spinning looking under truck and went to ground. Went to hospital and catscans and found crystals out of place. Sent to ENT. Put crystals back in about a month later. has been sitting around for the last month. Had a problem with lots of people in visual environment at [employer] but it straightened out right away. No more spinning but did freak out a little bit. Feels like in a tunnel since started spinning that day, was a little better after straightened out in ENT office but it did not last. Sleep in chair due to this, still problems if he turns at night. Disabled due to LB. 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 No balance problems. - Objective Walks steadily without moving head. Trasnfers I but slow up from chair and bed. Steps reciprocal with one rail. Posture is forward head and protracted scap. Cervical AROM WFL and without pain complaints today. - B hallpike can. - roll test. Oculomotor: no nystagmus with head shake or gaze or spontaneous obvious. Slight + R head thrust. 4 line difference DVA vs SVA. pursuit and saccadess are normal. VOR slightly symptomatic quickly and slow. - skew eye deviation. - ocular tilt - Balance/Special Test Scores Functional Gait Assessment Score: 22 % Disability: 26.6700 Dizziness Score: 78 - Goals Goal 1:: abolish vertigo feeling Goal Time Frame: 4-6 Weeks Goal 2:: FGA Goal Time Frame: 4-6 Weeks Goal 3:: Pt feel 100% back to normal activity at home including driving confidently Goal Time Frame: 4-6 Weeks Goal 4:: 10 or less DHI Goal Time Frame: 4-6 Weeks - Rehabilitation Potential Physical Therapy Diagnosis: possible vestibular hypofunction Rehabilitation Potential: Fair - Anticipated Interventions Patient/Client Instruction: Educate patient on: Condition, Plan of Care For the Purpose of:: To increase tolerance to activity/condition/position Comment: vestibular exercises For the Purpose of:: To improve muscle performance and motor function, To increase tolerance to activity/condition/position, To improve safety Thank you for the opportunity to evaluate your patient. For Medicare and Medicare HMO plans, please review the plan of care and approve it. It will need to be FAXED BACK to us at [phone] for Medicare purposes. For Medicare only, by signing this I certify the plan of care. Please let me know if there are questions or concerns regarding this plan of care. Physician Signature: Date:
--- NOTE | 2022-07-03 10:17 | HP.PTDCSUM ---
It has been my pleasure to treat CRISTIANE JOHNS referred by JENNIFER Hawkins, with the diagnosis of vertigo for a total of 2 visit(s). Discharge Date: 07/03/22 Please see the following information for a summary of their discharge status. Subjective: Been doing exercises at home. Neck stiffness. Really helping dizzyness. They straighten him out. Moving head all the way to side makes him notice neck at times and it makes noise. 5-6x/day. No other tunnel vision dizzyness since initially. Would feel normal. Activiites normal. Balance feels better. % Improvement: 100 Objective/Function: No symptoms with VOR, VOR walking looks good george FGa significantly improved. head turns and nods still mildly temporarily symptomatic for a few seconds. Pt much better Goal 1:: abolish vertigo feeling Goal Progress: Goal Met Goal 2:: FGA Goal Progress: Goal Met Goal 3:: Pt feel 100% back to normal activity at home including driving confidently Goal Progress: Goal Met Goal 4:: 10 or less DHI Goal Progress: Goal Met Plan: weekly x 4-6 for progression of adaptation/postiional exercises as helpful, monitor positional/MSQ if needed. If there are questions or concerns regarding this patient's physical therapy, please feel free to call me at [phone]. Thank you for the referral of this patient. Sincerely, Blu Reid, DPT, OCS, CSCS Balance/Gait/Functional tests - Balance/Special Test Scores Functional Gait Assessment Score: 29 % Disability: 3.3400 Dizziness Score: n
== END 2022-07-03 19:00 | disposition home or self-care (01) ==
LOC: PT 10:00
PROVIDERS: Referring Provider Nurse Practitioner Family; Visit Provider Nurse Practitioner Family
DX: R42 Dizziness and giddiness (principal)
CPT/HCPCS: 97161; 97530

== ENCOUNTER → 2022-08-29 | Outpatient (CLI) | payer MEDICAID, SELFPAY ==
--- NOTE | 2022-08-29 09:35 | RAD_ITS ---
STUDY: X-RAY CHEST REASON FOR EXAM: Male, 61 years old. DYSPNEA TECHNIQUE: Frontal and lateral views of the chest. COMPARISON: 09/03/2015. FINDINGS: The lungs are clear and expanded. There is no demonstrated pleural abnormality. Normal size heart. Normal mediastinum and dixie. Normal visualized pulmonary arteries. Normal visualized aortic arch and descending thoracic aorta. Normal visualized thoracic spine. Normal visualized ribs, clavicles, and shoulders. There is no demonstrated abnormality of the visualized soft tissue structures of the upper abdomen. RAD/Chest PA and Lateral IMPRESSION: Normal x-ray examination of the chest. Electronically Signed: Anthony Zabala MD at 22:54 EDT ,
[2022-08-29 10:58] LABS: PSA,Total - Annual Screen 1.45 ng/mL (0.00-4.00); Thyroid Stim Hormone (TSH) 0.68 uIU/mL (0.358-3.74)
[2022-08-29 10:59] LABS: Vitamin D,25 Hydroxy 37.4 ng/mL
== END | disposition home or self-care (01) ==
LOC: RAD 09:24
PROVIDERS: Referring Provider Nurse Practitioner Family; Visit Provider Nurse Practitioner Family
DX: R06.09 Other forms of dyspnea (principal); R53.83 Other fatigue; Z12.5 Encounter for screening for malignant neoplasm of prostate
CPT/HCPCS: 84153; 36415; 71046; 82306; 84443; G0103

== ENCOUNTER → 2023-03-05 | Outpatient (CLI) | payer MEDICAID, SELFPAY ==
[2023-03-05 13:06] LABS: Hematocrit 45.2 % (40-54); Hemoglobin 15.4 g/dL (13.0-16.5); Mean Corp Hgb Conc 34.1 g/dL (32-36); Mean Corpuscular Hgb 30.9 pg (27.0-32.0); Mean Corpuscular Volume 90.8 fL (80-94); Mean Platelet Vol. 10.3 fl (6.2-12.0); Platelet Count 294 K/mm3 (150-450); RBC Distribution Width CV 11.9 % (11.6-14.6); RBC Distribution Width SD 39.8 fl (35.1-43.9); Red Blood Count 4.98 M/mm3 (4.6-6.2); White Blood Count 11.5 K/mm3 (4.4-11.0)
[2023-03-05 13:43] LABS: ALB/GLOB Ratio 0.9 RATIO (0.9-2.4); AST(SGOT) 26 U/L (15-37); Alanine Aminotransfer ALT/SGPT 42 U/L (16-61); Albumin, Serum 3.8 g/dL (3.2-5.0); Alkaline Phosphatase 98 U/L (45-117); Anion Gap 5 (5-15); BUN 13 mg/dL (7-18); BUN/Creat Ratio 13.2 RATIO (10-20); Calcium,Total 8.6 mg/dL (8.5-10.1); Chloride 105 mmol/L (98-107); Cholesterol 176 mg/dL (200); Creatinine, Serum 0.99 mg/dL (0.70-1.30); EST Glomerular Filtration Rate 82 mL/min (>60); Est Glom Filt Rate - Afr Amer 99 mL/min (>60); Globulin 4.3 g/dL (2.2-4.2); Glucose 137 mg/dL (74-106); High Density Lipoprotein 31 mg/dL; Potassium 4.2 mmol/L (3.5-5.1); Protein, Total 8.1 g/dL (6.4-8.2); Sodium Level 140 mmol/L (136-145); Triglycerides 547 mg/dL
[2023-03-06 15:45] LABS: Hemoglobin A1c 5.3 % (3.8-5.6)
== END | disposition home or self-care (01) ==
DX: Z13.220 Encounter for screening for lipoid disorders (principal); I10 Essential (primary) hypertension; R73.9 Hyperglycemia, unspecified
CPT/HCPCS: 36415; 80053; 80061; 83036; 85027

== ENCOUNTER → 2023-12-11 | Outpatient (CLI) | payer MEDICAID, SELFPAY ==
--- NOTE | 2023-12-11 09:34 | RAD_ITS ---
STUDY: X-RAY - LEFT SHOULDER REASON FOR EXAM: Male, 63 years old. PAIN TECHNIQUE: 4 views of the left shoulder. COMPARISON: None. FINDINGS: Normal glenohumeral articulation. There is minimal acromioclavicular arthrosis. Normal acromion. Normal humeral head and visualized proximal humerus. The soft tissue structures are unremarkable. There is no demonstrated fracture. Normal visualized pulmonary apex. RAD/Shoulder min 2 Views IMPRESSION: Minimal acromioclavicular arthrosis. Electronically Signed: Anoop Craven MD at 9:27 EDT ,
[2023-12-11 10:01] LABS: Absolute Lymphocyte Count 2.15 X10^3/uL (0.83-4.51); Absolute Neutrophil Count 8.4 X10^3/uL (2.0-7.7); Basophil# 0.05 X10^3/uL; Basophil% 0.4 % (0-1); Eosinophil# 0.07 X10^3/uL; Eosinophils% 0.6 % (0-5); Hematocrit 46.5 % (40-54); Hemoglobin 15.6 g/dL (13.0-16.5); Lymphocyte # 2.15 X10^3/ul (0.83-4.51); Lymphocyte % 18.6 % (19-41); Mean Corp Hgb Conc 33.5 g/dL (32-36); Mean Corpuscular Hgb 30.3 pg (27.0-32.0); Mean Corpuscular Volume 90.3 fL (80-94); Mean Platelet Vol. 9.1 fl (6.2-12.0); Monocyte# 0.84 X10^3/uL; Monocyte% 7.3 % (0-10); NRBC Flagged by Analyzer 0 % (0-5); Neutrophil # 8.39 X10^3/uL (2.7-7.7); Neutrophil % 72.7 % (47-70); Platelet Count 358 K/mm3 (150-450); RBC Distribution Width CV 11.9 % (11.6-14.6); RBC Distribution Width SD 39.2 fl (35.1-43.9); Red Blood Count 5.15 M/mm3 (4.6-6.2); White Blood Count 11.6 K/mm3 (4.4-11.0)
[2023-12-11 11:11] LABS: AST(SGOT) 23 U/L (15-37); Alanine Aminotransfer ALT/SGPT 40 U/L (16-61); Albumin, Serum 3.9 g/dL (3.2-5.0); Alkaline Phosphatase 84 U/L (45-117); Anion Gap 4 (5-15); BUN 13 mg/dL (7-18); BUN/Creat Ratio 12.6 RATIO (10-20); Calcium,Total 9.6 mg/dL (8.5-10.1); Chloride 107 mmol/L (98-107); Cholesterol 187 mg/dL (200); Creatinine, Serum 1.03 mg/dL (0.70-1.30); EST Glomerular Filtration Rate 78 mL/min (>60); Est Glom Filt Rate - Afr Amer 94 mL/min (>60); Globulin 3.9 g/dL (2.2-4.2); Glucose 121 mg/dL (74-106); High Density Lipoprotein 34 mg/dL; Lipase 46 U/L (13-75); Potassium 4.8 mmol/L (3.5-5.1); Protein, Total 7.8 g/dL (6.4-8.2); Sodium Level 139 mmol/L (136-145); Triglycerides 304 mg/dL; Very Low Density Lipoprotein 61 mg/dL (5-40)
== END | disposition home or self-care (01) ==
LOC: LAB 09:22
PROVIDERS: Referring Provider Nurse Practitioner Family; Visit Provider Nurse Practitioner Family
DX: R10.11 Right upper quadrant pain (principal); I10 Essential (primary) hypertension; E78.5 Hyperlipidemia, unspecified; M25.512 Pain in left shoulder
CPT/HCPCS: 36415; 73030; 80053; 80061; 83690; 84443; 85025

== ENCOUNTER → 2023-12-19 | Outpatient (CLI) | payer MEDICAID, SELFPAY ==
--- NOTE | 2023-12-19 08:00 | US_ITS ---
INDICATION: Right upper quadrant pain COMPARISON: Abdominal CT 09/13/2017. FINDINGS: 139 grayscale ultrasound images of the bilateral upper quadrants. In addition dedicated color Doppler and Doppler waveform interrogation was performed. IVC: Expected waveform. No obvious IVC filling defect. PORTAL VEIN: Main portal vein is patent with appropriate directional flow. AORTA: Visualized aorta is of normal caliber. BILIARY SYSTEM: Common bile duct measures 0.5 cm in diameter. GALLBLADDER:? No gallbladder filling defects. Gallbladder wall thickness of 0.21 cm. No sonographic Huang sign. No pericholecystic fluid. LIVER: Small 1.3 cm left hepatic cyst. Echogenic hepatic parenchyma. PANCREAS: Visualized portions of the pancreas are unremarkable. SPLEEN: Unremarkable. KIDNEYS: Bilateral kidneys without shadowing nephrolith or hydronephrosis. 2.3 cm left upper renal pole anechoic lesion consistent with renal cyst. Echogenic shadowing 0.7 cm left upper renal pole focus, likely nephrolith in place. Similar 0.4 cm right lower renal pole likely nephroliths as well. No significant free fluid. US/Abdomen Complete IMPRESSION: Bilateral nephroliths in place without hydronephrosis. Echogenic hepatic parenchyma, most commonly associated with fatty infiltration the liver. 2 cm left renal cyst. Small hepatic cyst. Electronically Signed: Jewel Wei MD at 1:19 EDT ,
== END | disposition home or self-care (01) ==
LOC: US 08:00
PROVIDERS: Referring Provider Nurse Practitioner Family; Visit Provider Nurse Practitioner Family
DX: M25.512 Pain in left shoulder (principal); R10.11 Right upper quadrant pain
CPT/HCPCS: 76700

== ENCOUNTER 2024-01-07 06:17 | Day surgery (SDC) | payer MEDICARE, MEDICAID, SELFPAY ==
[2024-01-07] VITALS (10 sets, daily range): BP systolic 86–132; BP diastolic 65–83; PULSE 62–81; RESP 16–18; TEMP 36–36.9; O2SAT 93–99; BMI 35.8
[2024-01-07] MEDS: Lactated Ringers 1,000 ML 15 ML IV (06:47)
--- NOTE | 2024-01-07 07:12 | PRE.ANES_ITS ---
ASA Classification* ASA Classification ASA Classification: 2 Assessment & Plan Anesthesia* Anesthesia Assessment Anesthesia Assessment: Discussed sedation and/or anesthesia options, risks, benefits, and alternatives with patient/parents/legal guardian/POA. Questions invited. The patient/parents/legal guardian/POA seems to understand and agrees to proceed with anesthesia plan. Reviewed the physical assessment, medical history, allergy history and patient home medications list prior to surgery/procedure/anesthetic and documented any changes. Performed airway and anesthesia risk assessments. Anesthesia Type Anesthesia Type: MAC (see written pre anesthesia record for full assessment) Anesthesia Focused Assessment* Temperature: 96.9 F Pulse Rate: 81 Blood Pressure: 132/83 Respiratory Rate: 16 Pulse Ox: 98 Airway Assessment Mouth opens: >3 cm Mallampati Score: II Focused Labs Anesthesia Preop lab: CBC WBC 11.6 K/mm3 (4.4-11.0) H 12/11/23 09:27 RBC 5.15 M/mm3 (4.6-6.2) 12/11/23 09:27 Hgb 15.6 g/dL (13.0-16.5) 12/11/23 09:27 Hct 46.5 % (40-54) 12/11/23 09:27 Plt Count 358 K/mm3 (150-450) 12/11/23 09:27 CHEMISTRY Potassium 4.8 mmol/L (3.5-5.1) 12/11/23 09:27 Sodium 139 mmol/L (136-145) 12/11/23 09:27 BUN 13 mg/dL (7-18) 12/11/23 09:27 Creatinine 1.03 mg/dL (0.70-1.30) 12/11/23 09:27 Glucose 121 mg/dL (74-106) H 12/11/23 09:27 TSH 1.160 uIU/mL (0.358-3.740) 12/11/23 09:27 COAG Pre-Assessment Diagnosis/Proposed Procedure Planned Operative Procedure(s): CSCOPE Anesthesia History 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 When Was Last Pacemaker Check QUESTION #4 FULL TEXT: You/Your Family Experience fever (hyperthermia) with Anesthesia Last Oral Intake Last Oral intake: Last Oral Intake NPO since 00:00 01/07/24 06:45 Meds taken in AM with sips of water? Meds patient instructed to take am of surgery PONV PONV - nutrition program instructor: PONV - nutrition program instructor Female No 01/06/24 14:54 HX of Motion Sickness Yes 01/06/24 14:54 HX of N/V After Surgery No 01/06/24 14:54 Non-Smoker Yes 01/06/24 14:54 Duration of Surgery greater No 01/06/24 14:54 than 60 minutes Number of Risk Factors 2 01/06/24 14:54 PONV Score Moderate Risk 01/06/24 14:54 Height & Weight Height & Weight: Anesthesia: Height & Weight Height 5 ft 9 in 01/07/24 06:45 Weight: 110 kg 01/07/24 06:45 Body Mass Index (BMI) 35.8 01/07/24 06:45 Respiratory Assessment Respiratory Assessment - nutrition program instructor: Respiratory Tract Infection Hx - nutrition program instructor Hx Respiratory Tract Infection No 01/06/24 14:54 STOP Sleep Apnea STOP Sleep Apnea - nutrition program instructor: STOP Sleep Apnea - nutrition program instructor Hx Hypertension Yes: CONTROLLED WITH MED 01/06/24 14:54 Hx Sleep Apnea No 01/06/24 14:54 CPAP BIPAP Do you snore loudly (louder No 01/06/24 14:54 than talking or can be heard Do you often feel tired/ No 01/06/24 14:54 fatigued/ sleepy during daytime? Has anyone observed you stop No 01/06/24 14:54 breathing during sleep? STOP Results Negative 01/06/24 14:54 QUESTION #5 FULL TEXT : Do you snore loudly (louder than talking or can be heard through closed doors)? 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 Specify any problems Hx of Preganancy in last 3 N/A 01/06/24 14:54 Months Nurse Filling Out Transfusion NBUCHER 01/06/24 14:54 & Questions: Date: 01/06/24 01/06/24 14:54 Time: 14:55 01/06/24 14:54 Patient unable to answer at this time (ie. confused, unrespo /Reproduction History /Reproductive History - nutrition program instructor: /Reproductive Hx- nutrition program instructor Hx Now No 01/06/24 14:54 Gestational Age (in weeks): EDC: Hx Hx Para Hx Section SAB No 01/06/24 14:54 Active Medications Active Medications: Current Medications Generic Name Dose Route Start Last Admin Trade Name Freq PRN Reason Stop Dose Admin Lactated Ringer's 1,000 mls @ 15 mls/hr 01/07/24 06:45 01/07/24 06:47 IV 15 mls/hr .Q48H TARIQ Administration PFSH Medical History Wears glasses History of kidney stones High cholesterol Heartburn Former smoker Hypertension Blood in stool Acid reflux Diarrhea Abdominal pain Left shoulder pain Kidney stones Home Medications ?Medication ?Instructions ?Recorded ?Last Taken ?Type multivitamin 1 tab PO DAILY SUPPLEMENT 02/14/22 02/14/22 History lisinopril 10 mg tablet 10 mg PO QDAY 01/02/24 Unknown History red yeast rice 600 mg capsule 600 mg PO DAILY 01/06/24 Unknown History Allergy/AdvReac Type Severity Reaction Status Date / Time No Known Allergies Allergy Verified 01/07/24 06:44 Family History Brother CAD (coronary artery disease) Mother Tumor brain Sister Myocardial infarction Other Cancer Surgical History History of appendectomy Social History household members: significant other Smoking Status: Former smoker alcohol intake: never Review of Systems (Anesthesia) ROS Narrative System reviewed and no additional complaints, except as documented.
--- NOTE | 2024-01-07 07:20 | HP.PCM_ITS ---
HPI - General General Date of Admission: 01/07/24 Date of Service: 01/07/24 Chief Complaint: screening colonoscopy HPI Narrative CRISTIANE JOHNS, is a 63 M who presents for screening colonoscopy. no prior [facility] Medical History Wears glasses History of kidney stones High cholesterol Heartburn Former smoker Hypertension Blood in stool Acid reflux Diarrhea Abdominal pain Left shoulder pain Kidney stones Home Medications ?Medication ?Instructions ?Recorded ?Last Taken ?Type multivitamin 1 tab PO DAILY SUPPLEMENT 02/14/22 02/14/22 History lisinopril 10 mg tablet 10 mg PO QDAY 01/02/24 Unknown History red yeast rice 600 mg capsule 600 mg PO DAILY 01/06/24 Unknown History Allergy/AdvReac Type Severity Reaction Status Date / Time No Known Allergies Allergy Verified 01/07/24 06:44 Family History Brother CAD (coronary artery disease) Mother Tumor brain Sister Myocardial infarction Other Cancer Surgical History History of appendectomy Social History household members: significant other Smoking Status: Former smoker alcohol intake: never Vital Signs Vital Signs Vital Signs: 01/07/24 06:45 01/07/24 06:45 01/07/24 07:12 Temperature 96.9 F L 96.9 F L Temperature Source Temporal Pulse Rate 81 81 Respiratory Rate 16 16 Respiratory Pattern Normal Blood Pressure 132/83 H 132/83 H Blood Pressure Mean 99 Blood Pressure Source Monitor Blood Pressure Position Semi-Fowlers Blood Pressure Location Right Arm Pulse Ox 98 98 Oxygen Delivery Method Room Air Weight Weight: 242 lb 8.136 oz Body Mass Index (BMI) 35.8 Physical Exam Const alert and oriented x3 HEENT normocephalic Eyes PERRL Neck General: normal visual inspection GI normal to inspection, nondistended, normoactive bowel sounds
--- NOTE | 2024-01-07 07:30 | COLBX_PTH ---
PATIENT: CRISTIANE JOHNS LOC: EN U#:[id number] AGE/SX: 63/M ROOM: RE01/07/[address]: Dr. Tyler Howe MD : 1960 BED: DIS: 01/07/2024 SPEC #: [id number] RECD: 01/07/24 08:46 STATUS: YOLANDE LOU #: [id number] MARILEE: 01/07/24 07:[address]: Tyler Howe DEPT: SURGICAL PATHOLOGY RECD BY: Tyler Ly ENTERED: 01/07/24 10:19 SP TYPE: COLON BX OTHR DR: Aranza [facility] Tissues: A - Sigmoid colon biopsy B - Sigmoid colon biopsy Procedures: Surgery Specimen Level IV HEADER OPERATION: Colonoscopy with polypectomy and biopsy PRE-OP DIAGNOSIS: Screening colonoscopy TISSUE SUBMITTED: A- Sigmoid polyp, B- Sigmoid polyp biopsy #2 MICROSCOPIC DIAGNOSIS A. Sigmoid polyp, biopsy: Tubular adenoma. B. Sigmoid polyp #2, biopsy: Hyperplastic polyp. AM. 01/08/2024 MICROSCOPIC DESCRIPTION Slides are reviewed. GROSS DESCRIPTION A. Received in fixative is one container labeled with the patient's name and designated Sigmoid polyp. The specimen consists of a pink-red polyp measuring 2.0 x 1.5 x 1.0 cm. The presumed base is inked. The polyp is serially sectioned and submitted entirely in two cassettes. B. Received in fixative is one container labeled with the patient's name and designated Sigmoid polyp x2. The specimen consists of two irregular fragments of light tucker soft tissue that in aggregate measure 1.5 x 0.2 x 0.1 cm. The specimen is totally submitted in one cassette. 01/07/2024 TC:5 CPT:77186v4
--- NOTE | 2024-01-07 08:03 | PCM.POST.ANE ---
Anesthesia: Postop Eval I Current Vital Signs Temperature: 97 F Pulse Rate: 72 Blood Pressure: 86/65 Respiratory Rate: 16 Pulse Ox: 94 Oxygen Delivery Method: Room Air Assessment Airway patent: Yes Spontaneous unlabored respirations: Yes Mental status: Asleep nausea: No Vomiting: No Anesthesia Complication: No Fluid Hydration Crystalloid volume administer (ml): 600 Total IV fluid infused: 600 Progress Note Anesthesia document: Postop Eval 1 completed: Yes
--- NOTE | 2024-01-07 08:06 | OP.COLON_ITS ---
Patient Name: Alpesh Mackey Procedure Date: 01/07/2024 7:21 AM Date of : 1960 Age: 63 Procedure: Colonoscopy Indications: Rectal bleeding Providers: Tyler Howe MD Referring MD: Aranza Gonzalez [facility] Medicines: Propofol per Anesthesia Patient Profile: Refer to note in patient chart for documentation of history and physical. Last Colonoscopy: none. The patient's first colonoscopy is today. Complications: No immediate complications. Estimated blood loss: Minimal. Procedure: Pre-Anesthesia Assessment: - Prior to the procedure, a History and Physical was performed, and patient medications and allergies were reviewed. The patient's tolerance of previous anesthesia was also reviewed. The risks and benefits of the procedure and the sedation options and risks were discussed with the patient. All questions were answered, and informed consent was obtained. Prior Anticoagulants: The patient has taken no anticoagulant or antiplatelet agents. ASA Grade Assessment: II - A patient with mild systemic disease. After reviewing the risks and benefits, the patient was deemed in satisfactory condition to undergo the procedure. After I obtained informed consent, the scope was passed under direct vision. Throughout the procedure, the patient's blood pressure, pulse, and oxygen saturations were monitored continuously. The adult colonoscope was introduced through the anus and advanced to the cecum, identified by the appendiceal orifice, ileocecal valve and palpation. The ileocecal valve, appendiceal orifice, and rectum were photographed. The entire colon was well visualized. The colonoscopy was performed without difficulty. The patient tolerated the procedure well. The quality of the bowel preparation was adequate. Moderate Sedation: See the other procedure note for documentation of moderate sedation with intraservice time. Scope In: 7:33:57 AM Scope Withdrawal Time 0 hours 18 minutes 58 seconds Scope Out: 7:57:33 AM Total Procedure Duration Time 0 hours 23 minutes 36 seconds Findings: The perianal and digital rectal examinations were normal. Internal hemorrhoids were found during retroflexion. The hemorrhoids were mild. A 25 mm polyp was found in the sigmoid colon (at 28 cm) . The polyp was pedunculated. The polyp was removed with a hot snare. Resection and retrieval were complete. Verification of patient identification for the specimen was done by the signals collection technician using the patient's name, date and medical record number. Estimated blood loss was minimal. A 4 mm polyp was found in the sigmoid colon. The polyp was hyperplastic. The polyp was removed with a cold biopsy forceps. Resection and retrieval were complete. Verification of patient identification for the specimen was done by the signals collection technician using the patient's name, date and medical record number. Estimated blood loss was minimal. The exam was otherwise without abnormality on direct and retroflexion views. Impression: - Internal hemorrhoids. - One 25 mm polyp in the sigmoid colon, removed with a hot snare. Resected and retrieved. - One 4 mm polyp in the sigmoid colon, removed with a cold biopsy forceps. Resected and retrieved. - The examination was otherwise normal on direct and retroflexion views. Recommendation: - Discharge patient to home (ambulatory). - High fiber diet indefinitely. - Await pathology results. - Repeat colonoscopy in 3 years for surveillance. - Return to my office PRN. - Continue present medications. Procedure Code(s): --- Professional --- 85659, Colonoscopy, flexible; with removal of tumor(s), polyp(s), or other lesion(s) by snare technique 60731, 59, Colonoscopy, flexible; with biopsy, single or multiple Diagnosis Code(s): --- Professional --- K62.5, Hemorrhage of anus and rectum K64.8, Other hemorrhoids D12.5, Benign neoplasm of sigmoid colon CPT copyright 2021 [employer]. All rights reserved. The codes documented in this report are preliminary and upon gang vibrator operator review may be revised to meet current compliance requirements. Tyler Howe MD 01/07/2024 8:06:18 AM This report has been signed electronically. Number of Addenda: 0 Note Initiated On: 01/07/2024 7:21 AM
--- NOTE | 2024-01-07 08:07 | OP.CCLET_ITS ---
01/07/2024 Aranza Gonzalez [facility] Re : Colonoscopy procedure for Alpesh Mackey [facility] This procedure was performed on Sunday, January 07, 2024. My impressions and recommendations are as follows: Impressions : - Internal hemorrhoids. - One 25 mm polyp in the sigmoid colon, removed with a hot snare. Resected and retrieved. - One 4 mm polyp in the sigmoid colon, removed with a cold biopsy forceps. Resected and retrieved. - The examination was otherwise normal on direct and retroflexion views. Recommendations : - Discharge patient to home (ambulatory). - High fiber diet indefinitely. - Await pathology results. - Repeat colonoscopy in 3 years for surveillance. - Return to my office PRN. - Continue present medications. My findings are described in the full procedure note, which is enclosed. If I can be of further assistance, please feel free to contact me at . Sincerely, Tyler Howe MD 01/07/2024 8:06:18 AM This report has been signed electronically.
--- NOTE | 2024-01-07 08:12 | PCM.POSTANE2 ---
Anesthesia Postop Eval I Sum Postop Eval Completion status Anesthesia document: Postop Eval 1 completed: Yes Anesthesia Postop Eval I Summary Anesthesia Postop Eval I Summary: Anesthesia Postop Eval I: Assessment Summary Airway patent Yes 01/07/24 08:04 [email or web address] Spontaneous unlabored Yes 01/07/24 08:04 [email or web address] respirations Mental status Asleep 01/07/24 08:04 [email or web address] nausea No 01/07/24 08:04 [email or web address] Vomiting No 01/07/24 08:04 [email or web address] Anesthesia Postop Eval I: Fluid Summary Crystalloid volume administer 600 01/07/24 08:04 [email or web address] (ml) Colloids volume administered ( ml) Blood Product volume administered (ml) Total IV fluid infused 600 01/07/24 08:04 [email or web address] Anesthesia Postop Eval I: Summary Notes Anesthesia Complication No 01/07/24 08:04 [email or web address] Anesthesia Complication Comment: Post-operative progress note Anesthesia: Postop Eval II Evaluation Mental status: Awake Pain Level: 0 nausea: No Vomiting: No
== END 2024-01-07 08:47 | disposition home or self-care (01) ==
LOC: EN 06:28 → AC 06:29
PROVIDERS: Visit Provider Surgery
PROC: 0DJD8ZZ Inspection of Lower Intestinal Tract, Via Natural or Artificial Opening Endoscopic (ICD-10-PCS; CPT 45378; principal; 2024-01-07 07:25)
DX: Z12.11 Encounter for screening for malignant neoplasm of colon (principal); D12.5 Benign neoplasm of sigmoid colon; K64.8 Other hemorrhoids; I10 Essential (primary) hypertension; Z79.899 Other long term (current) drug therapy; Z87.891 Personal history of nicotine dependence
CPT/HCPCS: 45380; 45385; 88305; J7120; J2405

== ENCOUNTER → 2024-02-17 | Outpatient (CLI) | payer MEDICARE, SELFPAY ==
--- NOTE | 2024-02-17 13:01 | NM_ITS ---
CLINICAL: 63-year-old male with history of abdominal pain and chronic nausea. RADIONUCLIDE HEPATOBILIARY SCINTIGRAPHY COMPARISON: Abdominal ultrasound report 12/19/2023 FINDINGS: Following the intravenous administration of 5.5 mCi of 99m Tc Mebrofenin, hepatobiliary images reveal:. 1. Relatively prompt and homogeneous radiopharmaceutical concentration is noted by a normal sized liver. No parenchymal defects are identified. 2. Gallbladder activity is identified at 45 minutes post radiopharmaceutical administration. 3. Small intestinal tract is observed at 30 minutes following tracer injection minutes. 4. Washout of the radiopharmaceutical by the hepatic parenchyma appears qualitatively normal. Cholecystokinin (0.02 ug/kg) was administered intravenously over a 30-minute period. The post CCK gallbladder ejection fraction calculated at 20 minutes following Cholecystokinin administration was noted to be 6.0 % (normal greater than 35%). During 30 minutes of post CCK imaging, there is scintigraphic evidence of refilling of the gallbladder. Post cholecystokinin duodenal-gastric reflux is defined. NM/Hepatobilliary Img w/Pharm Int IMPRESSION: 1. An encountered normal gallbladder ejection fraction with refilling of the gallbladder following CCK administration may represent the presence of Sphincter of Oddi dysfunction. Correlation with Sphincter of Oddi manometry may be of benefit. (Bj and Bj, J Nucl Med 38:1824, 1997). 2. There is scintigraphic evidence of post CCK duodenal gastric reflux. Electronically Signed: Walter Blandon DO at 10:27 [facility] ,
== END | disposition home or self-care (01) ==
PROVIDERS: Referring Provider Surgery; Visit Provider Surgery
DX: R10.9 Unspecified abdominal pain (principal)
CPT/HCPCS: 78227; A9537; J2805

== ENCOUNTER 2024-03-03 09:17 | Day surgery (SDC) | payer MEDICARE, SELFPAY ==
[2024-03-03] VITALS (13 sets, daily range): BP systolic 117–158; BP diastolic 59–105; PULSE 73–114; RESP 16–28; TEMP 36.3–37; O2SAT 90–98; BMI 36.9
--- NOTE | 2024-03-03 | GALL_PTH ---
PATIENT: CRISTIANE JOHNS [place]: [facility] [place][id number] AGE/SX: 63/M ROOM: RE03/03/[address]: Dr. Tyler Howe MD : 1960 BED: DIS: 03/03/2024 SPEC #: [id number] RECD: 03/03/24 18:16 STATUS: YOLANDE LOU #: [id number] MARILEE: 03/03/24 00:[address]: Tyler Howe DEPT: SURGICAL PATHOLOGY RECD BY: Fuad Ko ENTERED: 03/04/24 12:22 SP TYPE: MARGARETH ANN DR: Joann Thacker, [facility], LOGISTICS INTERN-C Tissues: Gallbladder, NOS Procedures: Surgery Specimen Level III HEADER OPERATION: Laparoscopic cholecystectomy with IOC PRE-OP DIAGNOSIS: Biliary dyskinesia TISSUE SUBMITTED: Gallbladder MICROSCOPIC DIAGNOSIS Gallbladder, cholecystectomy: Cholesterolosis and chronic cholecystitis. AM. 03/06/2024 MICROSCOPIC DESCRIPTION Slides are reviewed. GROSS DESCRIPTION Received is one container labeled with the patient's name and designated gallbladder. The specimen consists of a gallbladder measuring 10.5 x 3.5 x 3.5 cm. The external surface is smooth and glistening. Focally, it is granular, hemorrhagic and contains cautery artifact. The lumen of the gallbladder contains yellow-green mucoid bile and no calculi are identified. The mucosa is bile-stained and without any mass lesions. The gallbladder wall averages 0.2 cm in thickness and is free of mass lesions. Curb Setter Helper sections of the gallbladder and the cystic duct at margin of resection are submitted in one cassette. / AM: 03/04/2024 TC:3 CPT: 17866
--- NOTE | 2024-03-03 09:33 | EKG12_ITS ---
Test Reason : PREOP Blood Pressure : */* mmHG Vent. Rate : 78 BPM Atrial Rate : 78 BPM P-R Int : 194 ms QRS Dur : 80 ms QT Int : 350 ms P-R-T Axes : 40 -3 44 degrees QTcB Int : 399 ms Normal sinus rhythm Normal ECG When compared with ECG of 24-Apr-2022 14:33, No significant change was found Confirmed by Esteban Simmons ([id number]), telegraph editor DEREK PETER ([id number]) on 03/04/2024 2:16:01 PM Referred By: Tyler Howe Confirmed By: Esteban Simmons
[2024-03-03] MEDS: Lactated Ringers 1,000 ML 15 ML IV ×2 (09:45→12:54)
--- NOTE | 2024-03-03 09:56 | PRE.ANES_ITS ---
ASA Classification* ASA Classification ASA Classification: 2 Assessment & Plan Anesthesia* Anesthesia Assessment Anesthesia Assessment: Discussed sedation and/or anesthesia options, risks, benefits, and alternatives with patient/parents/legal guardian/POA. Questions invited. The patient/parents/legal guardian/POA seems to understand and agrees to proceed with anesthesia plan. Reviewed the physical assessment, medical history, allergy history and patient home medications list prior to surgery/procedure/anesthetic and documented any changes. Performed airway and anesthesia risk assessments. Anesthesia Type Anesthesia Type: General Anesthesia Focused Assessment* Airway Assessment Mouth opens: >3 cm Mallampati Score: II Focused Labs Anesthesia Preop lab: CBC WBC 11.6 K/mm3 (4.4-11.0) H 12/11/23 09:27 RBC 5.15 M/mm3 (4.6-6.2) 12/11/23 09:27 Hgb 15.6 g/dL (13.0-16.5) 12/11/23 09:27 Hct 46.5 % (40-54) 12/11/23 09:27 Plt Count 358 K/mm3 (150-450) 12/11/23 09:27 CHEMISTRY Potassium 4.8 mmol/L (3.5-5.1) 12/11/23 09:27 Sodium 139 mmol/L (136-145) 12/11/23 09:27 BUN 13 mg/dL (7-18) 12/11/23 09:27 Creatinine 1.03 mg/dL (0.70-1.30) 12/11/23 09:27 Glucose 121 mg/dL (74-106) H 12/11/23 09:27 TSH 1.160 uIU/mL (0.358-3.740) 12/11/23 09:27 COAG Pre-Assessment Diagnosis/Proposed Procedure Planned Operative Procedure(s): LISA CONWAY WITH GRAMS Anesthesia History 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 When Was Last Pacemaker Check QUESTION #4 FULL TEXT: You/Your Family Experience fever (hyperthermia) with Anesthesia Last Oral Intake Last Oral intake: Last Oral Intake NPO since Meds taken in AM with sips of water? Meds patient instructed to take am of surgery PONV PONV - locomotive repairer diesel: PONV - locomotive repairer diesel Female No 02/28/24 08:24 HX of Motion Sickness No 02/28/24 08:24 HX of N/V After Surgery No 02/28/24 08:24 Non-Smoker Yes 02/28/24 08:24 Duration of Surgery greater Yes 02/28/24 08:24 than 60 minutes Number of Risk Factors 2 02/28/24 08:24 PONV Score Moderate Risk 02/28/24 08:24 Height & Weight Height & Weight: Anesthesia: Height & Weight Height 5 ft 9 in 01/07/24 06:45 Respiratory Assessment Respiratory Assessment - locomotive repairer diesel: Respiratory Tract Infection Hx - locomotive repairer diesel Hx Respiratory Tract Infection No 02/28/24 08:24 STOP Sleep Apnea STOP Sleep Apnea - locomotive repairer diesel: STOP Sleep Apnea - locomotive repairer diesel Hx Hypertension Yes: CONTROLLED WITH MED 02/28/24 08:24 Hx Sleep Apnea No 02/28/24 08:24 CPAP BIPAP Do you snore loudly (louder No 02/28/24 08:24 than talking or can be heard Do you often feel tired/ No 02/28/24 08:24 fatigued/ sleepy during daytime? Has anyone observed you stop No 02/28/24 08:24 breathing during sleep? STOP Results Negative 02/28/24 08:24 QUESTION #5 FULL TEXT : Do you snore loudly (louder than talking or can be heard through closed doors)? 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 Specify any problems Hx of Preganancy in last 3 N/A 02/28/24 08:24 Months Nurse Filling Out Transfusion DSCHRIBER 02/28/24 08:24 & Questions: Date: 02/28/24 02/28/24 08:24 Time: 08:25 02/28/24 08:24 Patient unable to answer at this time (ie. confused, unrespo /Reproduction History /Reproductive History - locomotive repairer diesel: /Reproductive Hx- locomotive repairer diesel Hx Now No 02/28/24 08:24 Gestational Age (in weeks): EDC: Hx Hx Para Hx Section SAB No 02/28/24 08:24 Active Medications Active Medications: Current Medications Generic Name Dose Route Start Last Admin Trade Name Freq PRN Reason Stop Dose Admin Lactated Ringer's 1,000 mls @ 15 mls/hr 03/03/24 09:45 IV 03/08/24 23:04 .Q48H [facility] Protocol PFSH Medical History Biliary dyskinesia Vomiting Wears glasses History of kidney stones High cholesterol Heartburn Former smoker Hypertension Blood in stool Acid reflux Diarrhea Abdominal pain Left shoulder pain Home Medications ?Medication ?Instructions ?Recorded ?Last Taken ?Type multivitamin 1 tab PO DAILY SUPPLEMENT 02/14/22 02/14/22 History lisinopril 10 mg tablet 10 mg PO QDAY 01/02/24 Unknown History red yeast rice 600 mg capsule 600 mg PO DAILY 01/06/24 Unknown History dicyclomine 10 mg capsule 10 mg PO TID #20 caps 02/26/24 Unknown Rx ondansetron 4 mg disintegrating 4 mg PO Q8H PRN nausea and 02/26/24 Unknown Rx tablet vomiting #20 tabs Allergy/AdvReac Type Severity Reaction Status Date / Time No Known Allergies Allergy Verified 02/28/24 08:23 Family History Brother CAD (coronary artery disease) Mother Tumor brain Sister Myocardial infarction Other Cancer Surgical History Hx of colonoscopy History of appendectomy Social History household members: significant other Smoking Status: Former smoker alcohol intake: never Review of Systems (Anesthesia) ROS Narrative System reviewed and no additional complaints, except as documented.
--- NOTE | 2024-03-03 10:00 | RAD_ITS ---
CLINICAL HISTORY: Male, 63 years old. Gallbladder disease PROCEDURE: CHOLANGIOGRAM - intraoperative FLUOROSCOPY TIME (if supplied): 11 seconds Placement of the catheter and the procedure were performed by: Operating surgeon Fluoroscopy was provided by ambulatory technologist, who was present in the room time of the procedure. TECHNIQUE: (. Fluoroscopic guided intraoperative cholangiogram was performed in the anterior projection FINDINGS: 2 fluoroscopic guided images were obtained during the exam to document findings during the study. For more complete information recommend correlation with surgical notes RAD/Cholangiogram/ O R,Initial IMPRESSION: Intraoperative cholangiogram Electronically Signed: Kushal Kidd MD at 16:33 EST Reading Location ID and State: [facility] / [place] Tel , Service support ,
--- NOTE | 2024-03-03 10:40 | PCM.HP.STD ---
HPI - General General Date of Admission: 03/03/24 Date of Service: 03/03/24 Chief Complaint: ruq PAIN HPI Narrative CRISTIANE JOHNS, is a 63 M who presents for elective lap shruthi for biliary dyskinesia [facility] Medical History Biliary dyskinesia Vomiting Wears glasses History of kidney stones High cholesterol Heartburn Former smoker Hypertension Blood in stool Acid reflux Diarrhea Abdominal pain Left shoulder pain Home Medications ?Medication ?Instructions ?Recorded ?Last Taken ?Type multivitamin 1 tab PO DAILY SUPPLEMENT 02/14/22 02/14/22 History lisinopril 10 mg tablet 10 mg PO QDAY 01/02/24 Unknown History red yeast rice 600 mg capsule 600 mg PO DAILY 01/06/24 Unknown History dicyclomine 10 mg capsule 10 mg PO TID #20 caps 02/26/24 Unknown Rx ondansetron 4 mg disintegrating 4 mg PO Q8H PRN nausea and 02/26/24 Unknown Rx tablet vomiting #20 tabs Allergy/AdvReac Type Severity Reaction Status Date / Time No Known Allergies Allergy Verified 03/03/24 10:23 Family History Brother CAD (coronary artery disease) Mother Tumor brain Sister Myocardial infarction Other Cancer Surgical History Hx of colonoscopy History of appendectomy Social History household members: significant other Smoking Status: Former smoker alcohol intake: never Vital Signs Vital Signs Vital Signs: 03/03/24 10:27 03/03/24 10:27 Temperature 98.6 F Temperature Source Temporal Pulse Rate 73 Respiratory Rate 16 Respiratory Pattern Normal Blood Pressure 124/85 H Blood Pressure Mean 98 Blood Pressure Source Monitor Blood Pressure Position Semi-Fowlers Blood Pressure Location Left Arm Pulse Ox 98 Oxygen Delivery Method Room Air Weight Weight: 250 lb Body Mass Index (BMI) 36.9 Physical Exam Const alert and oriented x3 General Appearance: cooperative and comfortable HEENT normocephalic Eyes PERRL Neck full ROM GI normal to inspection, nondistended, normoactive bowel sounds Assessment & Plan Assessment/Plan (1) Biliary dyskinesia: PLAN: Plan plan for lap shruthi today. Charges/Coding Visit Charges Inpatient E&M: 88187 Init Hosp L1
[2024-03-03] MEDS: Bupiv/Epi 0.25% 30 ML Vial (12:15)
--- NOTE | 2024-03-03 12:36 | PCM.POST.ANE ---
Anesthesia: Postop Eval I Current Vital Signs Temperature: 97.7 F Pulse Rate: 80 Blood Pressure: 119/105 Respiratory Rate: 20 Pulse Ox: 91 Oxygen Delivery Method: Room Air Assessment Airway patent: Yes Spontaneous unlabored respirations: Yes Mental status: Awake nausea: No Vomiting: No Anesthesia Complication: No Fluid Hydration Crystalloid volume administer (ml): 900 Total IV fluid infused: 900 Progress Note Anesthesia document: Postop Eval 1 completed: Yes
--- NOTE | 2024-03-03 12:40 | DCINST_ITS ---
Discharge Instructions Diet Discharge Diet: Light diet - advance as tolerated Activity Discharge Activity: Return to Normal Activity and May Shower May shower in (days): 1 Lifting Restrictions: Keep lifting under 20 pounds for 3 to 4 weeks Dressing / Incision Call your doctor if your incision/area has: Continuous Slow Oozing, Sudden Increased Bleeding, Increased Pain/ Swelling, Increased Redness, Foul Smelling Discharge and Swelling at the incision site Call your doctor if you observe: Fever of 101 or Higher Remove Dressing in: leave until fall off (Skin glue will fall off in 2 to 3 weeks.) Cleanse incision/area with: Soap & Water Follow Up Care Please Follow Up With: Tyler Howe MD When: 2 weeks Test Results: Test results from this visit will be discussed in further detail at your follow- up appointment, if applicable. Discharge Plan Admission Primary Reason for Your Visit: Laparoscopic cholecystectomy Attending Provider: Tyler Howe Primary Care Provider: Joann Thacker Instructions Print Language: Occitan Discharge Orders/Prescriptions Prescriptions: New oxycodone-acetaminophen [Percocet] 5-325 mg tablet 1 tab PO Q8H PRN (Reason: pain) 4 Days Qty: 10 0RF Continued lisinopril 10 mg tablet 10 mg PO QDAY ondansetron 4 mg tablet,disintegrating 4 mg PO Q8H PRN (Reason: nausea and vomiting) Qty: 20 0RF dicyclomine 10 mg capsule 10 mg PO TID Qty: 20 0RF multivitamin Tablet 1 tab PO DAILY red yeast rice 600 mg capsule 600 mg PO DAILY Rx Instructions: give with meal/snack Referrals / Follow Up: Joann Thacker, CASEWORK SPECIALIST-C [Primary Care Provider] - Disposition Disposition (needs filled in before D/C Order can be placed): Home, Self Care
--- NOTE | 2024-03-03 12:44 | PCM.OPRPT ---
Problems Associated Problem List Diagnoses (1) Biliary dyskinesia: Operative Report (Standard) Operative Information Surgery/Procedure Performed: Laparoscopic cholecystectomy with intraoperative cholangiograms Surgeon: Tyler Howe Date of Procedure: 03/03/24 Procedure Start Time: 11:17 Procedure Stop Time: 12:20 Pre-Operative Diagnosis: Right upper quadrant pain/biliary dyskinesia Post-Operative Diagnosis: Right upper quadrant pain/biliary dyskinesia Select all DRAINS/GRAFTS/IMPLANTS that apply: None Type of Anesthesia: General and Local Special Medications: None Estimated Blood Loss: 5 mL Specimen collected: Yes Description of specimen(s) removed: Gallbladder and contents Description of surgery: The patient is a 63-year-old male who was recently seen through the office with right upper quadrant pain. He had undergone previous imaging including an ultrasound of the right upper quadrant that was negative for any gallbladder wall thickening or gallstones. His symptoms were mostly nausea and vomiting but was also associated with diffuse right upper quadrant pain. I felt that his symptoms seemed consistent enough with biliary colic to warrant HIDA scan. The HIDA scan came back with an ejection fraction of about 6% consistent with biliary colic. Given his symptoms, I recommended a laparoscopic cholecystectomy. HIDA scan did also show the possibility of bile acid reflux and sphincter of Oddi dysfunction however symptomatic biliary colic/dyskinesia seems much more statistically probable and so cholecystectomy was offered. The patient was brought to the operating room today following informed consent. He was placed supine on the operative table with arms outstretched on arm boards. General endotracheal anesthesia was induced. Once adequately anesthetized the abdomen was then clipped prepped and draped in the usual sterile manner. A 5 mm incision was made just below the umbilicus through which a 5 mm trocar was placed optically. This was placed without incident. The abdomen is then fully insufflated with CO2 gas. Next a 10 mm trocar was placed under direct visualization in the epigastric area. This was followed by two 5 mm trocars on the right side of the abdomen. These 2 were placed without difficulty and under direct visualization. The patient had a large amount of intra-abdominal fat which obscured visualization of the gallbladder. In order to improve visualization patient was placed in steep reverse Trendelenburg positioning with some roll to the left as well. This did greatly improve our visualization. The gallbladder was visualized it was quite elongated and distended. It was encased in superficial fatty tissue. The peritoneum on either side of the gallbladder was released using Bovie electrocautery and a J-hook. This allowed further mobilization and visualization of the infundibulum. The peritoneum was then incised across the infundibulum and a [place] dissector as well as a Kitner were then used to dissect some of the fatty tissue inferiorly off of the region of the infundibulum. This quickly allowed visualization of the cystic duct. This was dissected circumferentially using Maryland dissector as well as a Kitner. The cystic artery was also identified more medially. This too was dissected out circumferentially. A critical view of safety was performed and it was felt that the cystic duct and cystic artery were accurately identified as the only 2 structures going to the gallbladder. The cystic duct was clipped closest to the gallbladder using a 10 mm clip manager mission. A small ductotomy was made using curved scissors. A cholangiogram catheter was then inserted and then cholangiograms were then performed using contrast. This showed good opacification of the biliary tree without any obvious filling defects. Next 10 mm clips x 3 were placed proximally on the cystic duct stump. The cystic duct was transected. The cystic artery was clipped twice proximally and once distally using the 10 mm clip manager mission. The artery was then transected using curved scissors as well. After this, the gallbladder was then bovied off the undersurface of the liver. Once free was placed into a bag and brought out through the 10 mm trocar site. To get the large gallbladder out of the abdomen, the incision did need to be increased in size by few millimeters and the fascia was stretched using a Re clamp. After doing so, the gallbladder was easily able to be removed. The 10 mm trocar was then replaced. The liver bed was copiously irrigated and suctioned clear and dry. A couple of areas required cauterization to ensure excellent hemostasis. Overall hemostasis was indeed excellent. Next the fascia at the 10 mm trocar site was closed using 0 PDS with the aid of a suture passer. 2 separate sutures were applied to close the fascia. The remaining trocars were opened up and insufflation was allowed to escape. A total of 20 cc of local anesthetic were injected into each of the incisions. Incisions were closed at the skin level with 4-0 Vicryl. 3-0 Vicryl was used to close the subdermal layer of the epigastric incision. Skin glue was applied as dressing. He was awakened anesthesia and taken to recovery in good condition A EXTERN was utilized as a ward assistant for the surgery. Her role included gallbladder retraction, holding the camera as well as assistance with skin closure. 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
--- NOTE | 2024-03-03 12:50 | POSTOPAN2_ITS ---
Anesthesia Postop Eval I Sum Postop Eval Completion status Anesthesia document: Postop Eval 1 completed: Yes Anesthesia Postop Eval I Summary Anesthesia Postop Eval I Summary: Anesthesia Postop Eval I: Assessment Summary Airway patent Yes 03/03/24 12:37 [email or web address] Spontaneous unlabored Yes 03/03/24 12:37 [email or web address] respirations Mental status Awake 03/03/24 12:37 [email or web address] nausea No 03/03/24 12:37 [email or web address] Vomiting No 03/03/24 12:37 [email or web address] Anesthesia Postop Eval I: Fluid Summary Crystalloid volume administer 900 03/03/24 12:37 [email or web address] (ml) Colloids volume administered ( ml) Blood Product volume administered (ml) Total IV fluid infused 900 03/03/24 12:37 [email or web address] Anesthesia Postop Eval I: Summary Notes Anesthesia Complication No 03/03/24 12:37 [email or web address] Anesthesia Complication Comment: Post-operative progress note Anesthesia: Postop Eval II Evaluation Mental status: Awake Pain Level: 0 nausea: No Vomiting: No
--- NOTE | 2024-03-03 12:50 | PCM.POSTANE2 ---
Anesthesia Postop Eval I Sum Postop Eval Completion status Anesthesia document: Postop Eval 1 completed: Yes Anesthesia Postop Eval I Summary Anesthesia Postop Eval I Summary: Anesthesia Postop Eval I: Assessment Summary Airway patent Yes 03/03/24 12:37 [email or web address] Spontaneous unlabored Yes 03/03/24 12:37 [email or web address] respirations Mental status Awake 03/03/24 12:37 [email or web address] nausea No 03/03/24 12:37 [email or web address] Vomiting No 03/03/24 12:37 [email or web address] Anesthesia Postop Eval I: Fluid Summary Crystalloid volume administer 900 03/03/24 12:37 [email or web address] (ml) Colloids volume administered ( ml) Blood Product volume administered (ml) Total IV fluid infused 900 03/03/24 12:37 [email or web address] Anesthesia Postop Eval I: Summary Notes Anesthesia Complication No 03/03/24 12:37 [email or web address] Anesthesia Complication Comment: Post-operative progress note Anesthesia: Postop Eval II Evaluation Mental status: Awake Pain Level: 0 nausea: No Vomiting: No
[2024-03-03] MEDS: oxyCODONE 5 MG Tablet PO (14:53)
[2024-03-03] MEDS: Acetaminophen 325 MG Tablet PO (14:53)
== END 2024-03-03 15:52 | disposition home or self-care (01) ==
LOC: SDC 09:23 → AC 09:25
PROVIDERS: PCP Nurse Practitioner Family; Referring Provider Surgery; Visit Provider Surgery
PROC: (CPT 47610; principal; 2024-03-03 10:40)
DX: K82.8 Other specified diseases of gallbladder (principal); E78.00 Pure hypercholesterolemia, unspecified; K81.1 Chronic cholecystitis; I10 Essential (primary) hypertension; Z79.899 Other long term (current) drug therapy; Z87.891 Personal history of nicotine dependence
CPT/HCPCS: 47563; 00790; 74300; 76000; 88304; 93005; J7120; C1769; J2405

== ENCOUNTER → 2024-04-21 | Outpatient (CLI) | payer MEDICARE, SELFPAY ==
--- NOTE | 2024-04-21 07:26 | MRI_ITS ---
STUDY: MRI LEFT SHOULDER REASON FOR EXAM: Male, 63 years old. Pain, rule out cuff tear left, limited range of motion. TECHNIQUE: Standardized fat and water weighted pulse sequences were obtained in all 3 orthogonal planes. COMPARISON: Left shoulder radiographs dated 12/11/2023. FINDINGS: There is a 4 x 5 mm intrasubstance/interstitial tear of the distal supraspinatus tendon insertion (coronal T2 series 5 image 11; sagittal T2 series 6 image 16). Normal infraspinatus tendon. Normal subscapularis tendon. Normal teres minor tendon. Normal supraspinatus muscle. Normal infraspinatus muscle. Normal subscapularis muscle. Normal teres minor muscle. Normal glenohumeral articulation. There is mild enthesopathic subcortical edema/cyst formation of the greater tuberosity of the humeral head. Normal biceps labral complex. Normal intracapsular long biceps tendon. Normal labrum. Normal capsulo-ligamentous complex. Normal rotator interval. There is mild acromioclavicular arthrosis. There is a Type II morphology (curved), with a neutral orientation. There is trace subacromial-subdeltoid bursal fluid. Normal visualized coracohumeral and coracoacromial ligaments. Normal quadrilateral space. Normal axillary space. Normal deltoid muscle. Normal trapezius muscle. MRI/Upper Ext Joint Only(Routine) IMPRESSION: 4 x 5 mm intrasubstance/interstitial tear of the distal supraspinatus tendon insertion. Mild acromioclavicular arthrosis. Minimal subacromial-subdeltoid bursitis. Electronically Signed: Anoop Craven MD at 9:14 EST ,
== END | disposition home or self-care (01) ==
PROVIDERS: PCP Nurse Practitioner Family; Referring Provider Orthopaedic Surgery Sports Medicine; Visit Provider Orthopaedic Surgery Sports Medicine
DX: M25.512 Pain in left shoulder (principal)
CPT/HCPCS: 73221

== ENCOUNTER 2024-06-17 06:52 | Day surgery (SDC) | payer MEDICARE, SELFPAY ==
[2024-06-17] VITALS (9 sets, daily range): BP systolic 110–132; BP diastolic 70–85; PULSE 69–76; RESP 16–18; TEMP 36.3–36.6; O2SAT 92–97; BMI 38.0
--- NOTE | 2024-06-17 07:13 | PCM.PRE.AN2 ---
ASA Classification* ASA Classification ASA Classification: 2 Assessment & Plan Anesthesia* Anesthesia Assessment Anesthesia Assessment: Discussed sedation and/or anesthesia options, risks, benefits, and alternatives with patient/parents/legal guardian/POA. Questions invited. The patient/parents/legal guardian/POA seems to understand and agrees to proceed with anesthesia plan. Reviewed the physical assessment, medical history, allergy history and patient home medications list prior to surgery/procedure/anesthetic and documented any changes. Performed airway and anesthesia risk assessments. Anesthesia Type Anesthesia Type: General and Block Anesthesia Focused Assessment* Airway Assessment Mouth opens: >3 cm Mallampati Score: II Focused Labs Anesthesia Preop lab: CBC WBC 11.6 K/mm3 (4.4-11.0) H 12/11/23 09:12/11/23 RBC 5.15 M/mm3 (4.6-6.2) 12/11/23 09:12/11/23 Hgb 15.6 g/dL (13.0-16.5) 12/11/23 09:12/11/23 Hct 46.5 % (40-54) 12/11/23 09:12/11/23 Plt Count 358 K/mm3 (150-450) 12/11/23 09:12/11/23 CHEMISTRY Potassium 4.8 mmol/L (3.5-5.1) 12/11/23 09:12/11/23 Sodium 139 mmol/L (136-145) 12/11/23 09:12/11/23 BUN 13 mg/dL (7-18) 12/11/23 09:12/11/23 Creatinine 1.03 mg/dL (0.70-1.30) 12/11/23 09:12/11/23 Glucose 121 mg/dL (74-106) H 12/11/23 09:12/11/23 TSH 1.160 uIU/mL (0.358-3.740) 12/11/23 09:12/11/23 COAG Pre-Assessment Diagnosis/Proposed Procedure Planned Operative Procedure(s): (L) Left shoulder Arthroscopy, subacromial decompression, rotator cuff repair, distal clavicle excision Anesthesia History 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 When Was Last Pacemaker Check QUESTION #4 FULL TEXT: You/Your Family Experience fever (hyperthermia) with Anesthesia Last Oral Intake Last Oral intake: Last Oral Intake NPO since Meds taken in AM with sips of water? 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 Has anyone observed you stop No 06/03/24 09:02 breathing during sleep? STOP Results Negative 06/03/24 09:02 QUESTION #5 FULL TEXT : Do you snore loudly (louder than talking or can be heard through closed doors)? 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 Specify any problems Hx of Preganancy in last 3 N/A 06/03/24 09:02 Months Nurse Filling Out Transfusion VCHRISTIN 06/03/24 09:02 & Questions: Date: 06/03/24 06/03/24 09:02 Time: 09:03 06/03/24 09:02 Patient unable to answer at this time (ie. 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: /Reproductive Hx- diesel pile hammer operator Hx Now Gestational Age (in weeks): EDC: Hx Hx Para Hx Section SAB No 06/03/24 09:02 Active Medications Active Medications: Current Medications Generic Name Dose Route Start Last Admin Trade Name Freq PRN Reason Stop Dose Admin Cefazolin Sodium 2 gm/ N/A 20 mls @ 400 mls/hr 06/17/24 07:30 IV 06/17/24 07:32 PREOP ONE Sodium Chloride 1,000 mls @ 15 mls/hr 06/17/24 07:00 IV 06/22/24 20:19 .Q48H [facility] Protocol PFSH Medical History Migraine headache Arthrosis of left acromioclavicular joint Bursitis of left shoulder Left rotator cuff tear Biliary dyskinesia Vomiting Wears glasses History of kidney stones High cholesterol Heartburn Former smoker Hypertension Blood in stool Acid reflux Diarrhea Abdominal pain Left shoulder pain Home Medications ?Medication ?Instructions ?Recorded ?Last Taken ?Type multivitamin 1 tab PO DAILY SUPPLEMENT 02/14/22 02/14/22 History lisinopril 10 mg tablet 10 mg PO QDAY 01/02/24 Unknown History red yeast rice 600 mg capsule 600 mg PO DAILY 01/06/24 Unknown History Allergy/AdvReac Type Severity Reaction Status Date / Time No Known Allergies Allergy Verified 06/03/24 08:59 Family History Brother CAD (coronary artery disease) Mother Tumor brain Sister Myocardial infarction Other Cancer Surgical History History of laparoscopic cholecystectomy S/P laparoscopic cholecystectomy Hx of colonoscopy History of appendectomy Social History household members: significant other Smoking Status: Former smoker alcohol intake: never Review of Systems (Anesthesia) ROS Narrative System reviewed and no additional complaints, except as documented.
--- NOTE | 2024-06-17 07:15 | PCM.HP.STD ---
HPI - General HPI Narrative CRISTIANE JOHNS, is a 63 M who presents for left shoulder arthroscopy, subacromial decompression, distal clavicle excision, rotator cuff repair. no change to h and p. left shoulder marked. rab, post op instructions and narcotic counselling. ok to proceed. MR#: [id number] Acct: [id number] Name: CRISTIANE JOHNS Rep #: [id number] : 1960 Provider: Dr. Jerome Blanton MD Age/Sex: 63/M Location[place] [facility] [place] Status: Signed Intake Vital Signs 03/03/2410:27 Height 5 ft 9 in Intake Visit Reasons: LEFT SHOULDER Chief Complaint: MRI review Accompanied by: Is patient in pain?: Yes Pain scale (1-10): 6 Allergies No Known Allergies Allergy (Verified 04/28/24 10:15) Medications ?Medication ?Instructions ?Recorded ?Confirmed ?Type multivitamin 1 tab PO DAILY SUPPLEMENT 02/14/22 04/28/24 History lisinopril 10 mg tablet 10 mg PO QDAY 01/02/24 04/28/24 History red yeast rice 600 mg capsule 600 mg PO DAILY 01/06/24 04/28/24 History dicyclomine 10 mg capsule 10 mg PO TID #20 caps 02/26/24 04/28/24 Rx ondansetron 4 mg disintegrating 4 mg PO Q8H PRN nausea and 02/26/24 04/28/24 Rx tablet vomiting #20 tabs PFSH Medical History Arthrosis of left acromioclavicular joint Bursitis of left shoulder Left rotator cuff tear Biliary dyskinesia Vomiting Wears glasses History of kidney stones High cholesterol Heartburn Former smoker Hypertension Blood in stool Acid reflux Diarrhea Abdominal pain Left shoulder pain Surgical History S/P laparoscopic cholecystectomy Hx of colonoscopy History of appendectomy Family History Brother CAD (coronary artery disease)Mother Tumor brainSister Myocardial infarctionOther Cancer Social History household members: significant other Smoking Status: Former smoker alcohol intake: never HPI LEFT SHOULDER Details: This documentation accurately reflects the service provided and the decisions made by me, Dr. Jerome Blanton MD 04/28/24 0843. Part of today?s visit was documented by [ ], acting as scribe. CRISTIANE JOHNS is a 63 year old M here today for FU L shoulder MRI. Patient still having laterally and anteriorly based shoulder pain worse with lifting failed conservative management including formal physical therapy. 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 Supplemental Info [facility] Imaging Services [address] [place] [address] Upper Ext Joint Only(Routine) MR#: [id number] Acct: [id number] Name: CRISTIANE JOHNS Rep #: [id number] : 1960 M 63 From: Anoop Craven MD PCP: Joann Thacker Vladislav, SUPERINTENDENT DIV[employer]C Status: REG CLI Study: Upper Ext Joint Only(Routine) Date of Exam: 04/21/24 Exam# [id number] Ordering Dr: Jerome Blanton MD STUDY: MRI LEFT SHOULDER REASON FOR EXAM: Male, 63 years old. Pain, rule out cuff tear left, limited range of motion. TECHNIQUE: Standardized fat and water weighted pulse sequences were obtained in all 3 orthogonal planes. COMPARISON: Left shoulder radiographs dated 12/11/2023. FINDINGS: There is a 4 x 5 mm intrasubstance/interstitial tear of the distal supraspinatus tendon insertion (coronal T2 series 5 image 11; sagittal T2 series 6 image 16). Normal infraspinatus tendon. Normal subscapularis tendon. Normal teres minor tendon. Normal supraspinatus muscle. Normal infraspinatus muscle. Normal subscapularis muscle. Normal teres minor muscle. Normal glenohumeral articulation. There is mild enthesopathic subcortical edema/cyst formation of the greater tuberosity of the humeral head. Normal biceps labral complex. Normal intracapsular long biceps tendon. Normal labrum. Normal capsulo-ligamentous complex. Normal rotator interval. There is mild acromioclavicular arthrosis. There is a Type II morphology (curved), with a neutral orientation. There is trace subacromial-subdeltoid bursal fluid. Normal visualized coracohumeral and coracoacromial ligaments. Normal quadrilateral space. Normal axillary space. Normal deltoid muscle. Normal trapezius muscle. MRI/Upper Ext Joint Only(Routine) IMPRESSION: 4 x 5 mm intrasubstance/interstitial tear of the distal supraspinatus tendon insertion. Mild acromioclavicular arthrosis. Minimal subacromial-subdeltoid bursitis. Electronically Signed: Anoop Craven MD at 9:14 EST Reading Location ID and State: [facility] / [place] , Service support , I independently reviewed the imaging. Concur with radiologist report. Coding Level of Care Code Off vis,est,level 3 Diagnoses Left shoulder pain M25.512 Left rotator cuff tear M75.102 Bursitis of left shoulder M75.52 Arthrosis of left acromioclavicular joint M19.012 Assessment and Plan Assessment and Plan (1) Left shoulder pain: Status: Acute Plan: 63 M with L shoulder 4 x 5 mm intrasubstance/interstitial tear of the distal supraspinatus tendon insertion, mild acromioclavicular arthrosis, and minimal subacromial-subdeltoid bursitis. Patient counseled on diagnosis prognosis different treatment options available. These can get bigger or larger over time and generally studies show a 10-year follow-up that they do better with operative repair. Patient would like to go ahead with left shoulder arthroscopy, subacromial decompression, distal clavicle excision, rotator cuff repair. We explained the recovery 2 to 3 weeks in a sling 6 weeks until strengthening in 3 to 6 months for full strength after the repair. He understands no further questions or concerns. Pros and cons risks and benefits were discussed with the patient including but not limited to infection, pain, stiffness, bleeding, damage to surrounding structures, neurovascular injury, recurrence or retear, failure or wear of hardware or fixation, instability, fracture, deep vein thrombosis and pulmonary embolism, anesthetic risks, , patient dissatisfaction, need for further surgery and other risks. Patient understood and wished to proceed with surgery, and signed the informed consent documentation. Patient counselled on non-operative and operative means of treating shoulder pain. Conservative options include but not limited to: 1. Rest and Activity Modification: Giving your shoulder time to heal by avoiding movements that cause pain can help. This may involve limiting overhead activities or heavy lifting. 2. Physical Therapy: A physical therapist can guide you through exercises that strengthen the muscles around the shoulder, improve flexibility, and reduce strain on the rotator cuff tendon. 3. Ice and Heat Therapy: Applying ice to the shoulder can help reduce swelling and pain, especially after activity. Heat can be helpful to relax tense muscles and improve blood flow before exercises. 4. Anti-Inflammatory Medications: Bifi-woc-neabckf medications like ibuprofen or naproxen can help reduce pain and inflammation in the tendon. 5. Corticosteroid Injections: If the pain is more severe, a steroid injection can reduce inflammation in the shoulder and provide relief for a longer period. 6. Platelet-Rich Plasma (PRP) Injection: This treatment involves using your own blood to promote healing in the tendon. The plasma is rich in growth factors that can encourage tissue repair. 7. TENS (Transcutaneous Electrical Nerve Stimulation): This therapy uses a small electrical current to help manage pain and promote healing by stimulating nerves. (2) Left rotator cuff tear: Status: Acute (3) Bursitis of left shoulder: Status: Acute (4) Arthrosis of left acromioclavicular joint: Status: Acute Ortho Exam General General: Yes no acute distress Neurologic: Yes alert and Yes oriented x3 Psychologic: Yes reasonable and appropriate Left Shoulder Skin/Wound: Yes CDI, No ecchymosis, No erythema and No swelling Testing: Yes Hawkin's, Yes Neer's, Yes Speed's, No TTP Biceps, Yes TTP AC Joint, Yes AROM-Forward Elevation 0-180, Yes AROM-External Rotation at side 0-60, Yes PROM-Forward Elevation 0-180, Yes empty can, No [place], Yes cross arm, No scapular winging and Yes belly press normal SHOULDER: normal motor and sens to axillary N, MRU and AIN/PIN. Hand warm well perfused normal radial pulse PFSH Medical History Migraine headache Arthrosis of left acromioclavicular joint Bursitis of left shoulder Left rotator cuff tear Biliary dyskinesia Vomiting Wears glasses History of kidney stones High cholesterol Heartburn Former smoker Hypertension Blood in stool Acid reflux Diarrhea Abdominal pain Left shoulder pain Home Medications ?Medication ?Instructions ?Recorded ?Last Taken ?Type multivitamin 1 tab PO DAILY SUPPLEMENT 02/14/22 02/14/22 History lisinopril 10 mg tablet 10 mg PO QDAY 01/02/24 Unknown History red yeast rice 600 mg capsule 600 mg PO DAILY 01/06/24 Unknown History Allergy/AdvReac Type Severity Reaction Status Date / Time No Known Allergies Allergy Verified 06/03/24 08:59 Family History Brother CAD (coronary artery disease) Mother Tumor brain Sister Myocardial infarction Other Cancer Surgical History History of laparoscopic cholecystectomy S/P laparoscopic cholecystectomy Hx of colonoscopy History of appendectomy Social History household members: significant other Smoking Status: Former smoker alcohol intake: never
[2024-06-17] MEDS: 0.9% Normal Saline (1000mL) 1,000 ML 15 ML IV (07:59)
[2024-06-17] MEDS: Cefazolin 2 GM in Syringe IV (09:28)
[2024-06-17] MEDS: Epinephrine (1 mg/ml) 1 MG/ML VIAL (10:00)
--- NOTE | 2024-06-17 10:34 | OP.PCM_ITS ---
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[employer] Plant Caretaker: facundo Tasks completed by elementary assistant teacher: Retracting Type of Anesthesia: Block,Regional and General RN Documented Start/Stop Times: Operation Date: 06/17/24 09:00 Case Time Into Pre-Op 06/17/24 06:57 Anesthesia Start 06/17/24 09:28 Into Room 06/17/24 09:28 Procedure Start 06/17/24 09:50 Procedure Start Time: 09:50 Procedure Stop Time: 10:35 Select all DRAINS/GRAFTS/IMPLANTS that apply: Implanted device Implanted device details: arthrex fibertak rc transtendon repair anchors Estimated Blood Loss: 50 Specimen collected: No Description of surgery: Patient brought to the operating room theater. Placed supine on the table. General anesthesia induced. 2 g IV Ancef administered prior to the procedure. Patient transferred left side up lateral decubitus beanbag positioner. Axillary roll used SCDs on the legs. All bony prominences padded. Upper extremity prepped and draped usual sterile fashion chlorhexidine-based prep solution allowing over 3 minutes drying time prior to draping. Arm in 40 degrees of abduction with 10 pounds of traction in line. Preoperative timeout performed to confirm the site patient and the surgery. Began by inserting the arthroscope through a standard posterior arthroscopy portal. Did a full diagnostic arthroscopy. Made an inside-out spinal needle localized portal through the rotator interval just posterior to the biceps. There was some moderate grade fraying along the biceps as well as at the superior labrum, gently debrided the fraying. Subscapularis tendon appeared normal. No subluxation of the LHB. There is some mild undersurface fraying of the supraspinatus tendon. Rest the rotator cuff tendons appeared normal. Cartilage on the glenoid had grade 2-3 changes I gently debrided those as well as some fraying of the labrum again gently debrided that. There was 1 area at the humeral head of approximately 1.5 cm x 1 cm mostly posterior inferior where there is full-thickness loss of the cartilage. No loose bodies axillary recess entered look to normal. Next I established a lateral portal. Then did a diagnostic arthroscopy and placed the scope into the subacromial space. There is a moderate amount of inflammatory bursitis there did a bursectomy completely to the lateral gutters as well as posteriorly. Identified the distal end of the clavicle. I did a distal clavicle excision for flat margins to about 4 mm a full shameka width. I did a subacromial decompression for about 3 mm down to flat margins there is slight downsloping of the undersurface acromion. I then examined the superior aspect of the rotator cuff. Although this looked i ntact there is a delaminating component consistent with an interstitial insertional tear as seen on the MRI. As such I decided to do a trans tendon rotator cuff repair. I used Arthrex fiber tack all suture knotless anchors. I placed 1 anteriorly and 1 posteriorly to the mid aspect of the tendon. I then converted the repair suture through the contralateral anchors to create 2 sutures for a bridging construct at the tear site. This achieved good compression at the footprint. The sutures were cut short. Final arthroscopy pictures taken and saved onto the system. Case terminated cannulas removed. Wounds cleaned with wet dry dressing closure of the portal sites with 3-0 Monocryl suture. I then placed Steri-Strips Adaptic 4 x 4 gauze ABD dressing cloth tape and an abduction pillow sling for the upper extremity. Patient woken up from a general anesthetic transferred off the operating table and taken to postanesthetic care unit in stable condition. All sponge needle instrument counts were correct no complications plan to be discharged home according to day surgery criteria. CPT 04972, 13939, 20098, 49252 Surgical Findings: as above Complications Complications: No Admit VTE Documentation VTE Present on Admission: No VTE Mechan Device Prophylaxis: SCD's VTE Pharm Prophylaxis ordered?: No Reason prophylaxis not ordered: Treatment Not Indicated
--- NOTE | 2024-06-17 10:45 | DCINST_ITS ---
Discharge Instructions Diet Discharge Diet: No restrictions Activity Ice area for (Minutes): 10 Lifting Restrictions: no lifting over 1 pound, ok for pendulums 4x/day Additional Activity Instructions:: ok to remove sling at rest, ok for hand wrist elbow ROM Dressing / Incision Call your doctor if your incision/area has: Continuous Slow Oozing, Sudden Increased Bleeding, Increased Pain/ Swelling, Increased Redness, Foul Smelling Discharge and Swelling at the incision site Call your doctor if you observe: Fever of 101 or Higher, Coldness, Increased Gaby n and Numbness or Tingling Remove Dressing in: leave in place till F/U Cleanse incision/area with: Do not get Incision Wet Follow Up Care Please Follow Up With: Jerome Blanton MD When: within 2 weeks Test Results: Test results from this visit will be discussed in further detail at your follow- up appointment, if applicable. Discharge Plan Admission Attending Provider: Jerome Blanton Primary Care Provider: Joann Thacker Instructions Patient Instructions: After Shoulder Arthroscopy Print Language: Romansh Discharge Orders/Prescriptions Prescriptions: New oxycodone-acetaminophen [Endocet] 5-325 mg tablet 1 tab PO Q4H MDD 6 PRN (Reason: pain) 5 Days Qty: 30 0RF No Action lisinopril 10 mg tablet 10 mg PO QDAY multivitamin Tablet 1 tab PO DAILY red yeast rice 600 mg capsule 600 mg PO DAILY Rx Instructions: give with meal/snack Referrals / Follow Up: Jerome Blanton MD [Med Staff - Active Staff] - Joann Thacker, OUTSIDE RIGGER-C [Primary Care Provider] - Disposition Disposition (needs filled in before D/C Order can be placed): Home, Self Care
--- NOTE | 2024-06-17 10:53 | PCM.POST.ANE ---
Anesthesia: Postop Eval I Current Vital Signs Temperature: 97.9 F Pulse Rate: 76 Blood Pressure: 116/75 Respiratory Rate: 16 Pulse Ox: 93 Assessment Airway patent: Yes Spontaneous unlabored respirations: Yes nausea: No Vomiting: No Anesthesia Complication: No Fluid Hydration Crystalloid volume administer (ml): 1,400 Total IV fluid infused: 1,400 Progress Note Anesthesia document: Postop Eval 1 completed: Yes
--- NOTE | 2024-06-17 11:33 | POSTOPAN2_ITS ---
Anesthesia Postop Eval I Sum Postop Eval Completion status Anesthesia document: Postop Eval 1 completed: Yes Anesthesia Postop Eval I Summary Anesthesia Postop Eval I Summary: Anesthesia Postop Eval I: Assessment Summary Airway patent Yes 06/17/24 10:53 LIGHT COIL WINDER.TNES Spontaneous unlabored Yes 06/17/24 10:53 LIGHT COIL WINDER.TNES respirations Mental status nausea No 06/17/24 10:53 LIGHT COIL WINDER.TNES Vomiting No 06/17/24 10:53 LIGHT COIL WINDER.TNES Anesthesia Postop Eval I: Fluid Summary Crystalloid volume administer 1,400 06/17/24 10:53 LIGHT COIL WINDER.TNES (ml) Colloids volume administered ( ml) Blood Product volume administered (ml) Total IV fluid infused 1,400 06/17/24 10:53 LIGHT COIL WINDER.TNES Anesthesia Postop Eval I: Summary Notes Anesthesia Complication No 06/17/24 10:53 LIGHT COIL WINDER.TNES Anesthesia Complication Comment: Post-operative progress note Anesthesia: Postop Eval II Evaluation Mental status: Awake Pain Level: 1 nausea: No Vomiting: No
--- NOTE | 2024-06-17 11:33 | PCM.POSTANE2 ---
Anesthesia Postop Eval I Sum Postop Eval Completion status Anesthesia document: Postop Eval 1 completed: Yes Anesthesia Postop Eval I Summary Anesthesia Postop Eval I Summary: Anesthesia Postop Eval I: Assessment Summary Airway patent Yes 06/17/24 10:53 [email or web address] Spontaneous unlabored Yes 06/17/24 10:53 [email or web address] respirations Mental status nausea No 06/17/24 10:53 [email or web address] Vomiting No 06/17/24 10:53 [email or web address] Anesthesia Postop Eval I: Fluid Summary Crystalloid volume administer 1,400 06/17/24 10:53 [email or web address] (ml) Colloids volume administered ( ml) Blood Product volume administered (ml) Total IV fluid infused 1,400 06/17/24 10:53 [email or web address] Anesthesia Postop Eval I: Summary Notes Anesthesia Complication No 06/17/24 10:53 [email or web address] Anesthesia Complication Comment: Post-operative progress note Anesthesia: Postop Eval II Evaluation Mental status: Awake Pain Level: 1 nausea: No Vomiting: No
== END 2024-06-17 12:23 | disposition home or self-care (01) ==
LOC: SDC 06:54 → AC 06:57
PROVIDERS: PCP Nurse Practitioner Family; Referring Provider Orthopaedic Surgery Sports Medicine; Visit Provider Orthopaedic Surgery Sports Medicine
PROC: (CPT 29805; principal; 2024-06-17 08:40)
DX: M75.102 Unspecified rotator cuff tear or rupture of left shoulder, not specified as traumatic (principal); M19.012 Primary osteoarthritis, left shoulder; M75.42 Impingement syndrome of left shoulder; I10 Essential (primary) hypertension; E78.00 Pure hypercholesterolemia, unspecified; M75.52 Bursitis of left shoulder; Z79.899 Other long term (current) drug therapy; Z87.891 Personal history of nicotine dependence
CPT/HCPCS: 29827; 29824; 29826; 29822; 64415; 01630; C1713; J2405

== ENCOUNTER 2024-08-13 11:30 | Outpatient (RCR) | payer MEDICARE, SELFPAY ==
--- NOTE | 2024-07-13 20:28 | HP.PTEVAL ---
Patient's Visit Information Visit Information Visit Information: CRISTIANE JOHNS is a 63 year old M referred to Physical Therapy by Dr. Jerome Blanton MD with a diagnosis of L SHLD ROTATOR CUFF REPAIR, SUBACROMIAL DECOMP, DIST CLAV DECOMP 06/16/24. Date of Evaluation: 07/08/24 Physical Therapist: Mindy Galicia, PT, Cert MDT Visit Plan Frequency: 2-3x /Week Duration: 4-6 Weeks Plan: PT 2-3X'S A WK X 8 WKS: 1. START W/GENTLE PROM L SHLD AND GRADE I AND II MOBS WITH DISTRACTION FOR PAIN RELIEF AND TO INCREASE ROM TOLERATED UNTIL 4 TO 6 WKS PO AND SCAR MOBILIZATION NEEDED 2. OK TO PROGRESS TO AAROM AT 5 TO 6 WKS PO KEEPING PAIN 0-3/10 X 4 WEEKS. 3. PROGRESS TO AROM 8 WEEKS PO WORKING TOWARD FULL ROM ALL PLANES AGAIN KEEPING PAIN 0-3/10 AND WHEN ROM IS FULL OK TO ADD RESISTANCE. 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 Subjective Subjective: Work/Leisure: UNEMPLOYEED. Disability: YES X APPROX 2 YEARS FOR BACK. Present symptoms: L SHOULDER PAIN. DENIES NUMBNESS AND TINLGLING. INTERMITTENT SHARP PAIN GOING DOWN ARM TO ELBOW. Present since: CHRONIC L SHLD PAIN. Getting Better, Getting Worse or Staying the Same: GETTING BETTER. Pain Scale: Worst - 7/10 Least - 4/10 Currently: 4/10 Commenced as a result of: NO APPARENT REASON OTHER THAN WELDING Symptoms at onset: COULDN'T GET HAND UP OVER HEAD Worse: USING IT Better: PUTTING IT BACK IN SLING. Disturbed sleep: SLEEPING IN RECLINER Previous history/Previous treatment: UNREMRKABLE. CHRONIC PAIN AND UNABLE TO LIFT ARM OVER-HEAD FOR COUPLE YEARS. PMH/Recent major surgery: Migraine headache Arthrosis of left acromioclavicular joint Bursitis of left shoulder Left rotator cuff tear Biliary dyskinesia History of kidney stones Former smoker Hypertension Blood in stool S/P laparoscopic cholecystectomy History of appendectomy Objective Objective: THIS PATIENT PRESENTS TO PT APPROX 3 WEEKS PO L SHLD ROTATOR CUFF REPAIR. Sitting Posture/Standing Posture: L SHLD LEVEL LOWER AND ANT COMPARED TO R. SLOUCHED IN SITTING WITH FH AND KVNG ROUNDED SHLD'S. Active Correction of posture: ABLE TO PARTIALLY CORRECT. DOES NOT MAINTAIN. Other Observations: INDEP GAIT AND TRANSFERS. Sensory deficit: LEFT UE LIGHT TOUCH SENSATION GROSSLY INTACT ROM deficit: SUPINE L SHLD PASSIVE FLEXION TO 90 DEG. PASSIVE L SHLD ER TO 5 DEG. L ELBOW ROM 0-0-124 DEG. L FOREARM, WRIST AND HAND AROM WFL. Motor deficit: L SHLD STRENGTH NT. Cervical Mvmt Loss: PATIENT WITH CERVICAL ROM WFL WITHOUT C/O NECK PAIN OR INCREASED L SHLD PAIN WITH TESTING. Postural strength: FAIR Palpation: MILD SWELLING OF L SHLD AND UPPER ARM REGIONS. NO SIGNS OF INFECTION. Balance/Special Test Scores Quick DASH Score: 60.0000 Goals Goal 1:: PATIENT WILL HAVE L SHLD PROM TO 130 DEG AND ER TO 50 DEG Goal Time Frame: 2-4 Weeks Goal 2:: PATIENT WILL REPORT L SHLD PAIN RANGING 0-3/10 AND AT LEAST 50% IMPROVEMENT. Goal Time Frame: 4-6 Weeks Goal 3:: PATIENT WILL HAVE L SHLD AROM TO 150 FLEX AND 60 ER ALONG WITH IR TO SMALL OF BACK TO IMPROVE ADL FUNCTION. Goal Time Frame: 6-8 Weeks Goal 4:: PATIENT WILL BE INDEP WITH A HEP FOR CONTINUED IMPROVEMENT ONCE FORMAL PHYSCIAL THERAPY CONCLUDES. Goal Time Frame: 8-12 Weeks Goal 5:: PATIENT WILL SCORE AN 18 OR BETTER ON THE QUICK DASH QUESTIONNAIRE. Goal Time Frame: 8-12 Weeks Rehabilitation Potential Physical Therapy Diagnosis: L UE STIFFNESS S/P ROTATOR CUFF REPAIR. Rehabilitation Potential: Good Anticipated Interventions Patient/Client Instruction: Educate patient on: Condition, Plan of Care and Risk Factors For the Purpose of:: To improve self management Therapeutic Exercise to Include: Strength training, Body mechanics, Postural training, Flexibilty training, Passive ROM, Active ROM and Scapular Strength/Stabilization For the Purpose of:: To decrease pain, To increase ROM, To improve muscle performance and motor function, To improve ability to perform ADL's, To increase tolerance to activity/condition/position, To improve ability of physical actions for home/community/work/leisure, To increase flexibility/ROM and To improve self management Cryotherapy (ice pack, ice massage): Yes For the Purpose of:: To decrease pain and To decrease swelling/inflammation Text: Thank you for the opportunity to evaluate your patient. For Medicare and Medicare HMO plans, please review the plan of care and approve it. It will need to be FAXED BACK to us at [phone] for Medicare purposes. For Medicare only, by signing this I certify the plan of care. Please let me know if there are questions or concerns regarding this plan of care. Physician Signature: Date:
--- NOTE | 2024-08-13 15:27 | HP.PTREVAL_ITS ---
Re-Evaluation Intro: Dr. Jerome Blanton MD, It has been my pleasure to treat CRISTIANE JOHNS over the last 11 visits for L SHLD ROTATOR CUFF REPAIR, SUBACROMIAL DECOMP, DIST CLAV DECOMP 06/16/24. Please see the progress note below for an update on the physical therapy plan of care! Subjective Subjective: Patient reports he is still sleeping in a recliner. States he still gets pain and tingling and when he reaches and stretches. Reports all of the ex's are pretty good put the [place] one on the wall gets him. He reports the pain is mild and he can deal with it. He reports he is happy he can get his elbow up as high as he can get it and that he can reach up as high as he can. States he can get it up higher now that he has been able to in a year. Patient reports he feels better after each therapy appointment. Patient states he wants to keep coming to therapy and the surgeon wants to see him again after he has done 2 months of therapy. Objective Objective/Function: PATIENT WAS SEEN TODAY FOR RE-ASSESSMENT OF PROGRESS TOWARD THE SET PT GOALS AND THE NEED FOR FURTHER PHYSICAL THERAPY VS READINESS FOR DISCHARGE. UPON EXAM TODAY: ROM deficit: SUPINE L SHLD AROM FLEX 145 DEG, ABD 155 DEG, ER 30 DEG, IR, 65 D EG ( ER/IR MEASURED WITH ~50 DEG ABD). PROM L SHLD IN SITTING: FLEX 150 DEG, ER 35 DEG. PATIENT REFUSES TO LAY DAY FOR L SHLD PASSIVE ROM STATING HIS BACK JUST CANNOT TAKE IT. L ELBOW, FOREARM, WRIST AND HAND AROM WFL. Motor deficit: L SHLD STRENGTH NT. PATIENT C/O PAIN WITH AROM AND ESPECIALLY AT THE END OF AVAILABLE ROM INTO FLEXION AND INTERNAL ROTATION. OTHER: PATIENT TENDS TO MOVE IMPULSIVELY DURING EXAM AND DOES NOT FOLLOW COMMANDS WELL TO COMPLY WITHIN RESTRICTIONS RECOMMEND FOR USE OF L UE. DESPITE THIS HE IS PROGRSSING WELL AND IS A GOOD CANDIDATE TO CONTINUE THERAPY. Plan Plan Plan: CONTINUE PT 2X'S A WK X 4-6 WKS PROGRESS OFFICIALLY TO AROM NOW THAT PATIENT IS 8 WEEKS PO. WORK TOWARD FULL ROM ALL PLANES AGAIN KEEPING PAIN 0-3/10 AND WHEN ROM IS FULL OK TO START PROGRESSIVE RESISTIVE EX. HEP INST. ICE NEEDED. Balance/Gait/Functional tests Balance/Special Test Scores Quick DASH Score: 50.0000 Goals Goals Goal 1:: PATIENT WILL HAVE L SHLD PROM TO 130 DEG AND ER TO 50 DEG Goal Time Frame: 2-4 Weeks Goal Progress: Progressing Goal 2:: PATIENT WILL REPORT L SHLD PAIN RANGING 0-3/10 AND AT LEAST 50% IMPROVEMENT. Goal Time Frame: 4-6 Weeks Goal Progress: Progressing Goal 3:: PATIENT WILL HAVE L SHLD AROM TO 150 FLEX AND 60 ER ALONG WITH IR TO SMALL OF BACK TO IMPROVE ADL FUNCTION. Goal Time Frame: 6-8 Weeks Goal Progress: Progressing Goal 4:: PATIENT WILL BE INDEP WITH A HEP FOR CONTINUED IMPROVEMENT ONCE FORMAL PHYSCIAL THERAPY CONCLUDES. Goal Time Frame: 8-12 Weeks Goal Progress: Progressing Goal 5:: PATIENT WILL SCORE AN 18 OR BETTER ON THE QUICK DASH QUESTIONNAIRE. Goal Time Frame: 8-12 Weeks Goal Progress: Progressing Anticipated Interventions Anticipated Interventions Patient/Client Instruction: Educate patient on: Condition, Plan of Care and Risk Factors For the Purpose of:: To improve self management Therapeutic Exercise to Include: Strength training, Body mechanics, Postural training, Flexibilty training, Passive ROM, Active ROM and Scapular Strength/Stabilization For the Purpose of:: To decrease pain, To increase ROM, To improve muscle performance and motor function, To improve ability to perform ADL's, To increase tolerance to activity/condition/position, To improve ability of physical actions for home/community/work/leisure, To increase flexibility/ROM and To improve self management Cryotherapy (ice pack, ice massage): Yes For the Purpose of:: To decrease pain and To decrease swelling/inflammation Re-Evaluation Ending Re-evaluation ending: Please do not hesitate to contact me at [phone] by phone or if you have questions or concerns regarding this new plan of care! Sincerely, Mindy Galicia, PT, Cert MDT
== END 2024-08-13 19:00 | disposition home or self-care (01) ==
LOC: PT 11:30
PROVIDERS: PCP Nurse Practitioner Family; Referring Provider Orthopaedic Surgery Sports Medicine; Visit Provider Orthopaedic Surgery Sports Medicine
DX: M19.012 Primary osteoarthritis, left shoulder (principal); M75.52 Bursitis of left shoulder; M75.102 Unspecified rotator cuff tear or rupture of left shoulder, not specified as traumatic
CPT/HCPCS: 97110; 97140; 97162; 97530